=== PATIENT | female | born 1940 | race Caucasian/White ===

== ENCOUNTER 2016-09-29 18:42 | Inpatient (IN) | payer MEDICARE, OTHER ==
[2016-09-29] MEDS ORDERED: Sodium Chloride 0.9% 10 ML Syringe FLUSH PRN (19:12)
[2016-09-29] MEDS ORDERED: cefTRIAXone 1 GM Vial IVPUSH ONE (19:54)
[2016-09-29] MEDS ORDERED: Azithromycin 250 MG Tab PO ONE (19:55)
[2016-09-29 20:45] LABS: CHLORIDE,CL 97 mmol/L (98-107); SODIUM,NA 133 mmol/L (136-145)
[2016-09-30] MEDS: Metoprolol Tartrate 25 MG Tab PO SCH ×2 (00:24→08:16)
[2016-09-30] MEDS: Lisinopril 20 MG Tab PO SCH ×3 (00:25→19:46)
[2016-09-30] MEDS: rOPINIRole 0.5 MG Tab PO SCH ×2 (00:25→21:19)
--- NOTE | 2016-09-30 08:01 | ER ---
Date of Service: 09/29/2016 SUBJECTIVE: Yanique presents to the emergency room with 2-week history of productive cough, fever, chills, fatigue, and dyspnea. The patient states that she thought that she had a cold and which would resolve on its own. The patient states that her symptoms have gotten progressively worse and she is extremely fatigued and weak. She states that her cough is productive of yellowish to reddish sputum. She has also been experiencing fever and chills, but denies any significant shortness of breath. PAST MEDICAL HISTORY: 1. Hypertension. 2. Restless legs syndrome. 3. Thoracic aortic aneurysm. 4. Valvular heart disease. MEDICATIONS: 1. Requip 1 mg p.o. at bedtime. 2. Norvasc 5 mg p.o. daily. 3. Lopressor 100 mg p.o. b.i.d. 4. Lisinopril 20 mg p.o. b.i.d. 5. Vitamin D3 2000 units p.o. daily. 6. Aspirin 325 mg p.o. daily. ALLERGIES: Codeine. REVIEW OF SYSTEMS: General: Positive for fever and chills. HEENT: No sore throat, rhinorrhea, or congestion. Respiratory: Mild shortness of breath. She does have a productive cough and chest congestion. Cardiac: Denies any substernal chest pain. No jaw, arm, neck, or back pain. GI: No nausea, vomiting, or diarrhea. No melena, hematochezia, or hematemesis. : Denies any dysuria. Musculoskeletal: No myalgias, arthralgias. Neurologic: No fainting, blackouts, or lightheadedness. PHYSICAL EXAMINATION: General: This is a 76-year-old female patient, who is in no acute distress. Vital Signs: Blood pressure is 172/75, pulse rate 82, O2 saturations 87% on room air, respiratory rate is 20, temperature is 38.1, pulse rate 82. Skin: Warm, pink, and dry. HEENT: Head is normocephalic, atraumatic. Eyes, PERRLA. Extraocular movements are intact. Mouth, oral mucosa is moist. Lungs: Diminished with rhonchi noted in the mid lung valverde. Diminished in the bases with crackles. Heart: Regular rate and rhythm. Abdomen: Soft, nontender. There is no hepatosplenomegaly noted. There is no masses noted. Extremities: Without edema. Neurologic: She is alert and oriented answers questions appropriately. Her speech is fluent. Her gait is within normal limits. LABORATORY DATA: WBCs 18.4, hemoglobin is 14.3, platelets are 170, coags PT is 11.7, INR is 1.0, chemistry sodium is 133, potassium is 3.3, chloride is 97, bicarb is 28, BUN is 12, creatinine is 0.7. GFR is greater than 60. Glucose is 106 lactic acid is 1.5, calcium is 8.5, corrected calcium is 9.06, total bilirubin is 1.4, AST is 33, ALT 30, alkaline phosphatase is 108, CRP is 1.2. Total protein is 6.6, albumin is 3.3. Portable chest x-ray was obtained. She did have evidence of bibasilar infiltrates on the portable chest x-ray that was obtained. Influenza A and B were obtained and were negative. ASSESSMENT: Community-acquired pneumonia. PLAN: The patient was started on Rocephin 1 g IV and azithromycin 500 mg p.o. here in the emergency room. Based on the CURB-65 criteria patient was borderline for admission criteria, however, she was hypoxic which did necessitate inpatient treatment for this illness. Dr. Paige will be admitting the patient acutely, as she likely will be inpatient for more than 2 days. All questions were answered. MWK: 09/29/2016 21:10:10 MODL: 09/29/2016 21:36:12 /[id number]
[2016-09-30] MEDS: Aspirin 325 MG Tab.EC PO SCH (08:15)
[2016-09-30] MEDS: amLODIPine 5 MG Tab PO SCH (08:18)
[2016-09-30] MEDS: Cholecalciferol (Vitamin D3) 1,000 Unit Tab PO SCH (08:20)
[2016-09-30] MEDS ORDERED: Diclofenac Sodium 75 MG Tab.EC PO PRN (10:05)
--- NOTE | 2016-09-30 10:14 | PCM.HP ---
H&P History of Present Illness - General Date of Service: 09/30/16 Source of Information: Patient, Old Records - History of Present Illness Initial Comments - Free Text/Narative: Chief Complaint: Pneumonia HPI: She became ill about 2 weeks ago, thinks it started when the farmers near her house work cutting alfalfa and she noticed a bit of allergy. She then developed cough with yellow and reddish mucoid sputum, chills, fever and thought she had a cold and would get better. She was also too busy at home and with restorationist functions to come for medical care but finally last night when she wasnt improving she came to ER. She had WBC 18,000, CXR showing especially infiltrate on lower R, possibly some on L also and is admitted for bronchopneumonia. She has not had trouble with her lungs previously. Never a smoker or exposed to secondhand smoke. She has had trouble with UTIs quite a bit. Has been on Rx for hypertension for many years, for many years has noted rather marked exertional dyspnea, that is actually no worse now than previously. Her severe coughing is what bothers her the most. Medical History: -Thinks she has had no medical admissions to the hospital -Many ER visits for UTIs -Rx for hypertension for many years -Has had EchoKG in 08 showing aortic aneurysm, mild aortic and mitral regurgitation, EF 65% -DX of vitamin D deficiency, restless leg syndrome, L lung nodule, Impaired Fasting Glucose, H zoster, poorly functioning gallbladder, diverticulosis, abnormal DEXA, -seasonal allergic rhinitis Surgical History: -Para 6 -Bilateral knee replacement -Appendectomy -Colonoscopy in 15 showing only diverticulosis -Severe scalp laceration with a flap procedure for repair Family History: -Father and many brothers had coronary artery disease, 2 of the brothers had CABG -Another brother had a stroke -Sisters [place] Social History: Lived at [place] with her Eamon who 5 years ago. 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 Children live in [facility]. Patient of [facility]. Allergies: Intolerant to codeine Medications: -Vitamin D 2000 units daily -Lisinopril 20 mg BID -Norvasc 5 mg daily -Lopressor 100 mg BID -Requip 1 mg daily at bedtime for RLS -Aspirin 325 mg daily Systems Review: Constitutional: Says she doesnt eat much but maintains her weight, generally doing well except as above Eyes: Never any cataracts, has some lid ptosis but no surgery planned ENT: Hearing OK, has dentures Cardiac: C/O marked exertional dyspnea, not known if this is related to her valvular heart disease; denies any exertional chest pain Pulmonary: See HPI GI: Has had abnormal HIDA scan of her gallbladder but never needed cholecystectomy, says she mainly has to avoid spicy food, has some nausea this morning : Hx of cystocele but she denies any bladder control issues Endocrine: Has had borderline blood sugar, never any cholesterol or thyroid trouble Musculoskeletal still lots of pain in her knees, says it is rheumatism in her knees, legs; only mildly a problem in her hands Derm: Denies any skin cancers or other problems Heme: Says has had anemia in the past and bruises easily Allergies: Does have seasonal allergies, thinks this episode started with exposure to alfalfa hay Neuro: Has restless leg syndrome, lots of trouble with daily headache in the past, lately has not been very severe except during the 2 weeks of this illness , including this morning when she has a headache. Takes aspirin Psych: Never any trouble with depression, credits keeping very busy; does not drink alcohol upper mid chest Pain Score (Numeric/FACES): 6 - Related Data Allergies/Adverse Reactions: Allergies Allergy/AdvReac Type Severity Reaction Status Date / Time codeine Allergy Stomach Verified 09/29/16 20:57 Ache Home Medications: Home Meds Aspirin 325 mg PO DAILY 08/01/14 [History] Cholecalciferol (Vitamin D3) [Vitamin D] 2,000 unit PO DAILY 08/01/14 [History] Lisinopril [Prinivil] 20 mg PO BID 08/01/14 [History] Metoprolol Tartrate [Lopressor] 100 mg PO BID 08/01/14 [History] amLODIPine [Norvasc] 5 mg PO DAILY 08/01/14 [History] rOPINIRole HCl [Requip] 1 mg PO BEDTIME 08/01/14 [History] Aspirin/Calcium Carbonate/Mag [Aspirin Buffered 325 mg Tab] 325 mg PO DAILY [History] Diclofenac Sodium 25 mg PO BID 09/30/16 [History] Past Medical History Cardiovascular History: Reports: Afib, Hypertension Neurological History: Reports: Other (See Below) Other Neuro History: Restless leg syndrome Social & Family History - Tobacco Use Smoking Status *Q: Never Smoker Second Hand Smoke Exposure: No - Alcohol Use Days Per Week of Alcohol Use: 0 - Recreational Drug Use Recreational Drug Use: No H&P Review of Systems - Review of Systems: Review Of Systems: See Below Exam - Exam Exam: See Below - Vital Signs Vital Signs: Last Vital Signs Temp 36.7 C 09/30/16 09:17 Pulse 57 L 09/30/16 09:17 Resp 18 09/30/16 09:17 BP 141/72 H 09/30/16 09:17 Pulse Ox 92 L 09/30/16 09:17 Weight: 84.595 kg - Exam Physical Exam Comments:: Physical Exam: General: Sits up in bed unassisted, does not feel febrile, alert and lucid ENT: TMs normal color, mouth and throat unremarkable, has dentures; no obvious nasal discharge Eyes: Mild bilateral ptosis, pupils equal Neck: No jugular venous distention, bruit, or masses Cardiac: Heart is regular, has a grade 2 systolic murmur at the R sternal border ; no ankle edema and has good posterior tibial pulses bilateral Pulmonary: She is coughing a lot but her lung sounds are actually clear, does not appear overtly dyspneic Breasts: Not examined Abdomen: No tenderness, masses, organomegaly Extremities: Thickening of all of her joints, bony prominences in her feet, but no gross deformity Neuro: Alert, speech is clear, moves arms and legs normally, facial muscles symmetric Psych: Affect seems normal CXR: Definitely has some infiltrate in lower R, possibly L also Lab: Leukocytosis, mild hypokalemia (3.3) and hyponatremia (133) - Patient Data Result Diagrams: 09/29/16 20:10 09/29/16 20:10 *Q Meaningful Use (ADM) - VTE *Q VTE Criteria *Q: - Stroke *Q Stroke Criteria *Q: - AMI *Q AMI Criteria *Q: Problem List Initiated/Reviewed/Updated: Yes Orders Last 24hrs: Active Orders 24 hr Category Date Time Status Patient Status [ADT] Routine ADT 09/29/16 21:00 Ordered Oxygen Therapy [RC] PRN Care 09/30/16 09:39 Ordered VTE/DVT Education [RC] PER UNIT ROUTINE Care 09/30/16 09:39 Ordered Vital Signs [RC] Q4H Care 09/30/16 09:39 Ordered CXR [Chest 2V] [CR] Routine Exams 10/01/16 07:30 Ordered Aspirin [Ecotrin] Med 09/30/16 08:00 Active 325 mg PO DAILY Azithromycin [Zithromax] Med 09/30/16 09:45 Ordered 250 mg PO DAILY Cholecalciferol (Vitamin D3) [Vitamin D3] Med 09/30/16 08:00 Active 2,000 units PO DAILY Diclofenac Sodium [Voltaren] Med 09/30/16 10:05 Ordered 25 mg PO TID PRN LORazepam [Ativan] Med 09/30/16 20:00 Active 0.5 mg PO BEDTIME Lisinopril [Prinivil] Med 09/29/16 23:00 Active 20 mg PO BID Metoprolol Tartrate [Lopressor] Med 09/29/16 23:00 Active 100 mg PO BID amLODIPine [Norvasc] Med 09/30/16 08:00 Active 5 mg PO DAILY cefTRIAXone [Rocephin] Med 09/30/16 20:00 Ordered 1 gm IVPUSH DAILY rOPINIRole [Requip] Med 09/30/16 00:00 Active 1 mg PO BEDTIME Resuscitation Status Routine Resus Stat 09/30/16 09:39 Ordered Medication Orders Amlodipine Besylate (Norvasc) 5 mg PO DAILY [facility] Last Admin: 09/30/16 08:18 Dose: 5 mg Aspirin (Ecotrin) 325 mg PO DAILY [facility] Last Admin: 09/30/16 08:15 Dose: 325 mg Azithromycin (Zithromax) 250 mg PO BEDTIME [facility] Stop: 10/03/16 20:01 Ceftriaxone Sodium (Rocephin) 1 gm IVPUSH BEDTIME [facility] Cholecalciferol (Vitamin D3) 2,000 units PO DAILY [facility] Last Admin: 09/30/16 08:20 Dose: 2,000 units Diclofenac Sodium (Voltaren) 25 mg PO TID PRN PRN Reason: Pain Lisinopril (Prinivil) 20 mg PO BID [facility] Last Admin: 09/30/16 08:19 Dose: 20 mg Admin: 09/30/16 00:25 Dose: 20 mg Lorazepam (Ativan) 0.5 mg PO BEDTIME [facility] Metoprolol Tartrate (Lopressor) 100 mg PO BID [facility] Last Admin: 09/30/16 08:16 Dose: 100 mg Admin: 09/30/16 00:24 Dose: 100 mg Ropinirole HCl (Requip) 1 mg PO BEDTIME [facility] Last Admin: 09/30/16 00:25 Dose: 1 mg Sodium Chloride (Saline Flush) 10 ml FLUSH ASDIRECTED PRN PRN Reason: Keep Vein Open Assessment/Plan Comment:: Impression: -Bronchopneumonia, especially lower R, possibly bilateral Secondary diagnoses: Hypertension, controlled -Mild aortic stenosis with mild regurgitation -Hx of thoracic aortic aneurysm, stable -Restless leg syndrome -Hx vitamin D deficiency -Seasonal allergic rhinitis -Degenerative arthritis -Mild ptosis of eyelids Plan: -Admitted for IV Rocephin and oral Zithromax -Repeat CXR on 10/01 -Continue other medications as previous
[2016-09-30] MEDS ORDERED: DICLOFENAC 25 MG PO PRN (10:16)
[2016-09-30] MEDS: Ibuprofen 200 MG Tab PO PRN (10:59)
[2016-09-30] MEDS: Azithromycin 250 MG Tab PO SCH (19:41)
[2016-09-30] MEDS: Metoprolol Tartrate 50 MG Tab PO SCH (19:45)
[2016-09-30] MEDS: cefTRIAXone 1 GM Vial IVPUSH SCH (19:49)
[2016-09-30] MEDS: LORazepam 0.5 MG Tab PO SCH (21:19)
[2016-10-01] MEDS: Ibuprofen 200 MG Tab PO PRN ×2 (05:07→23:45)
[2016-10-01] MEDS: Aspirin 325 MG Tab.EC PO SCH (08:25)
[2016-10-01] MEDS: Metoprolol Tartrate 50 MG Tab PO SCH ×2 (08:25→19:40)
[2016-10-01] MEDS: amLODIPine 5 MG Tab PO SCH (08:27)
[2016-10-01] MEDS: Lisinopril 20 MG Tab PO SCH ×2 (08:28→19:41)
[2016-10-01] MEDS: Cholecalciferol (Vitamin D3) 1,000 Unit Tab PO SCH (08:29)
[2016-10-01] MEDS ORDERED: Sodium Chloride 0.9% 100 ML IV ONE (10:18)
[2016-10-01] MEDS ORDERED: Iopamidol 612 MG/ML 100 ML Bottle IVPUSH ONE (10:18)
[2016-10-01 11:17] LABS: CHLORIDE,CL 95 mmol/L (98-107); SODIUM,NA 132 mmol/L (136-145)
--- NOTE | 2016-10-01 14:17 | PCM.PN ---
- General Info Date of Service: 10/01/16 Admission Dx/Problem (Free Text): Subjective: Patient was admitted two days ago for pneumonia. Started on Rocephin plus Zithromax. She describes close to a two-week history before this with what she felt was just a bad cold. She describes progressive sputum and dyspnea. Probably some low-grade fevers at home nothing very pronounced here. She does note blood tinged sputum which has continued while she is here. She's may be feeling slightly better since admission but not a lot. Maybe slight pressure in her chest but nothing which she would describe as pain per se. She has no history of heart or lung disease. She has no risk factors for thromboembolic disease. She never smoked. Objective: Oxygen saturations 98% on 2 L temperature 36.7 blood pressure 160/80 pulse 90. Alert oriented sitting in chair not dyspneic no acute distress heart regular rate and rhythm no murmurs or gallops lungs reveal some diminished sounds slight crackles right base. Extremities warm well perfused no calf swelling or edema. White count is decreased from 18,000 10,000. CRP is gone up from 1-10. Chemistry remained stable. BNP and d-dimer only mildly elevated for age. Because of hemoptysis we did CT chest. She does wear fairly dense infiltrate on the right lower side. Assessment and plan: Hemoptysis dyspnea. Appears to be secondary to the dense pneumonitis on the right lung. Probably infectious in nature. White count is coming down, she's been afebrile since she's been here, her oxygen saturations have improved from low 90s to high 90s on 2 L. Continue Rocephin plus Zithromax. No PE seen. She will need repeat imaging in six weeks or so to ensure resolution of this dense infiltrate and exclude any underlying mass. BP running a bit high, will monitor for now. She otherwise appears stable. - Patient Data Vitals - most recent: Last Vital Signs Temp 36.4 C 10/01/16 14:03 Pulse 62 10/01/16 08:25 Resp 18 10/01/16 14:03 BP 161/72 H 10/01/16 14:03 Pulse Ox 62 L 10/01/16 14:03 Weight - most recent: 84.595 kg I&O - last 24 hours: Intake & Output 09/30/16 10/01/16 10/01/16 22:59 06:59 14:59 Intake Total 300 250 910 Output Total 200 200 350 Balance 100 50 560 Lab Results last 24 hrs: Laboratory Results - last 24 hr 10/01/16 10/01/16 10/01/16 Range/Units 10:38 10:38 10:38 WBC 10.3 H (4.0-10.0) x10^3/uL RBC 4.56 (4.00-5.50) x10^6/uL Hgb 13.7 (12.0-16.0) g/dL Hct 40.6 (33.0-47.0) % MCV 89.0 (78.0-93.0) fL MCH 30.0 (26.0-32.0) pg MCHC 33.7 (32.0-36.0) g/dL RDW Coeff of Artur 14.0 (10.0-15.0) % Plt Count 154 (130-400) x10^3/uL Neut % (Auto) 89.4 H (50.0-80.0) % Lymph % (Auto) 5.6 L (25.0-50.0) % [place] % (Auto) 4.7 (2.0-11.0) % Eos % (Auto) 0.2 (0.0-4.0) % Baso % (Auto) 0.1 L (0.2-1.2) % D-Dimer, Quantitative 1.07 H (<=0.58) mg/LFEU Sodium 132 L (136-145) mmol/L Potassium 3.8 (3.5-5.1) mmol/L Chloride 95 L (98-107) mmol/L Carbon Dioxide 33 H (21-32) mmol/L BUN 14 (7-18) mg/dL Creatinine 0.7 (0.55-1.02) mg/dL Est Cr Clr Drug Dosing 62.01 mL/min Estimated GFR (MDRD) > 60 Glucose 102 (74-106) mg/dL Calcium 8.5 (8.5-10.1) mg/dL Corrected Calcium 9.38 (8.5-10.1) mg/dL Total Bilirubin 1.0 (0.2-1.0) mg/dL AST 31 (15-37) U/L ALT 30 (14-59) U/L Alkaline Phosphatase 96 (46-116) U/L Troponin I 0.020 (<=0.056) ng/mL C-Reactive Protein 10.2 H (<=0.9) mg/dL B-Natriuretic Peptide 792 H (<=450) pg/mL Total Protein 6.2 L (6.4-8.2) g/dL Albumin 2.9 L (3.4-5.0) g/dL Globulin 3.3 Albumin/Globulin Ratio 0.88 Med Orders - Current: Current Medications Amlodipine Besylate (Norvasc) 5 mg PO DAILY [facility] Last Admin: 10/01/16 08:27 Dose: 5 mg Aspirin (Ecotrin) 325 mg PO DAILY [facility] Last Admin: 10/01/16 08:25 Dose: 325 mg Azithromycin (Zithromax) 250 mg PO BEDTIME [facility] Stop: 10/03/16 20:01 Last Admin: 09/30/16 19:41 Dose: 250 mg Ceftriaxone Sodium (Rocephin) 1 gm IVPUSH BEDTIME [facility] Last Admin: 09/30/16 19:49 Dose: 1 gm Cholecalciferol (Vitamin D3) 2,000 units PO DAILY [facility] Last Admin: 10/01/16 08:29 Dose: 2,000 units Ibuprofen (Motrin) 400 mg PO TID PRN PRN Reason: PAIN Last Admin: 10/01/16 05:07 Dose: 400 mg Lisinopril (Prinivil) 20 mg PO BID [facility] Last Admin: 10/01/16 08:28 Dose: 20 mg Lorazepam (Ativan) 0.5 mg PO BEDTIME [facility] Last Admin: 09/30/16 21:19 Dose: 0.5 mg Metoprolol Tartrate (Lopressor) 100 mg PO BID [facility] Last Admin: 10/01/16 08:25 Dose: 100 mg Ropinirole HCl (Requip) 1 mg PO BEDTIME [facility] Last Admin: 09/30/16 21:19 Dose: 1 mg Sodium Chloride (Saline Flush) 10 ml FLUSH ASDIRECTED PRN PRN Reason: Keep Vein Open Discontinued Medications Azithromycin (Zithromax) 500 mg PO ONETIME ONE Stop: 09/29/16 19:56 Last Admin: 09/29/16 20:25 Dose: 500 mg Ceftriaxone Sodium (Rocephin) 1 gm IVPUSH ONETIME ONE Stop: 09/29/16 19:55 Last Admin: 09/29/16 20:30 Dose: 1 gm Sodium Chloride (Normal Saline) 100 mls @ 3 mls/sec IV ONETIME ONE Stop: 10/01/16 10:19 Last Admin: 10/01/16 11:14 Dose: Not Given Iopamidol (Isovue-300 (61%)) 100 ml IVPUSH ONETIME ONE Stop: 10/01/16 10:19 Last Admin: 10/01/16 11:14 Dose: 100 ml Metoprolol Tartrate (Lopressor) 100 mg PO BID [facility] Last Admin: 09/30/16 08:16 Dose: 100 mg - Problem List Review Problem List Initiated/Reviewed/Updated: Yes - My Orders Last 24 Hours: My Active Orders 10/01/16 10:04 Chest PE [Ang Chest] [CT] Routine - Plan Plan:: Impression: -Bronchopneumonia, especially lower R, possibly bilateral Secondary diagnoses: Hypertension, controlled -Mild aortic stenosis with mild regurgitation -Hx of thoracic aortic aneurysm, stable -Restless leg syndrome -Hx vitamin D deficiency -Seasonal allergic rhinitis -Degenerative arthritis -Mild ptosis of eyelids Plan: -Admitted for IV Rocephin and oral Zithromax -Repeat CXR on 10/01 -Continue other medications as previous
[2016-10-01] MEDS: LORazepam 0.5 MG Tab PO SCH (19:40)
[2016-10-01] MEDS: rOPINIRole 0.5 MG Tab PO SCH (19:40)
[2016-10-01] MEDS: Azithromycin 250 MG Tab PO SCH (19:41)
[2016-10-01] MEDS: cefTRIAXone 1 GM Vial IVPUSH SCH (19:42)
[2016-10-02] MEDS: Cholecalciferol (Vitamin D3) 1,000 Unit Tab PO SCH (07:54)
[2016-10-02] MEDS: Lisinopril 20 MG Tab PO SCH ×2 (07:54→19:32)
[2016-10-02] MEDS: Metoprolol Tartrate 50 MG Tab PO SCH ×2 (07:54→19:36)
[2016-10-02] MEDS: Aspirin 325 MG Tab.EC PO SCH (07:54)
[2016-10-02] MEDS: amLODIPine 5 MG Tab PO SCH (07:55)
--- NOTE | 2016-10-02 08:57 | PCM.PN ---
- General Info Date of Service: 10/02/16 Subjective Update: Feels improved from yesterday and significantly so from admission. Still cough that is productive of brown-reddish sputum. No shortness of breath, chest pain, or palpitations. Still feels somewhat weak but improved from admission; PT cleared her yesterday to go home upon d/c rather than swing bed. - Review of Systems General: Reports: No Symptoms HEENT: Reports: no symptoms Pulmonary: Reports: cough, sputum, hemoptysis. Denies: shortness of breath Cardiovascular: Reports: No Symptoms Gastrointestinal: Reports: No symptoms Genitourinary: Reports: no symptoms Skin: Reports: no symptoms Neurological: Reports: No Symptoms - Patient Data Vitals - most recent: Last Vital Signs Temp 36.5 C 10/02/16 06:00 Pulse 73 10/02/16 07:54 Resp 14 10/02/16 06:00 BP 176/80 H 10/02/16 07:55 Pulse Ox 97 10/02/16 06:00 Weight - most recent: 84.595 kg I&O - last 24 hours: Intake & Output 10/01/16 10/02/16 10/02/16 22:59 06:59 14:59 Intake Total 380 800 Output Total 450 1000 Balance -70 -200 Lab Results last 24 hrs: Laboratory Results - last 24 hr 10/01/16 10/01/16 10/01/16 Range/Units 10:38 10:38 10:38 WBC 10.3 H (4.0-10.0) x10^3/uL RBC 4.56 (4.00-5.50) x10^6/uL Hgb 13.7 (12.0-16.0) g/dL Hct 40.6 (33.0-47.0) % MCV 89.0 (78.0-93.0) fL MCH 30.0 (26.0-32.0) pg MCHC 33.7 (32.0-36.0) g/dL RDW Coeff of Artur 14.0 (10.0-15.0) % Plt Count 154 (130-400) x10^3/uL Neut % (Auto) 89.4 H (50.0-80.0) % Lymph % (Auto) 5.6 L (25.0-50.0) % [place] % (Auto) 4.7 (2.0-11.0) % Eos % (Auto) 0.2 (0.0-4.0) % Baso % (Auto) 0.1 L (0.2-1.2) % D-Dimer, Quantitative 1.07 H (<=0.58) mg/LFEU Sodium 132 L (136-145) mmol/L Potassium 3.8 (3.5-5.1) mmol/L Chloride 95 L (98-107) mmol/L Carbon Dioxide 33 H (21-32) mmol/L BUN 14 (7-18) mg/dL Creatinine 0.7 (0.55-1.02) mg/dL Est Cr Clr Drug Dosing 62.01 mL/min Estimated GFR (MDRD) > 60 Glucose 102 (74-106) mg/dL Calcium 8.5 (8.5-10.1) mg/dL Corrected Calcium 9.38 (8.5-10.1) mg/dL Total Bilirubin 1.0 (0.2-1.0) mg/dL AST 31 (15-37) U/L ALT 30 (14-59) U/L Alkaline Phosphatase 96 (46-116) U/L Troponin I 0.020 (<=0.056) ng/mL C-Reactive Protein 10.2 H (<=0.9) mg/dL B-Natriuretic Peptide 792 H (<=450) pg/mL Total Protein 6.2 L (6.4-8.2) g/dL Albumin 2.9 L (3.4-5.0) g/dL Globulin 3.3 Albumin/Globulin Ratio 0.88 Med Orders - Current: Current Medications Amlodipine Besylate (Norvasc) 5 mg PO DAILY [facility] Last Admin: 10/02/16 07:55 Dose: 5 mg Aspirin (Ecotrin) 325 mg PO DAILY [facility] Last Admin: 10/02/16 07:54 Dose: 325 mg Azithromycin (Zithromax) 250 mg PO BEDTIME [facility] Stop: 10/03/16 20:01 Last Admin: 10/01/16 19:41 Dose: 250 mg Ceftriaxone Sodium (Rocephin) 1 gm IVPUSH BEDTIME [facility] Last Admin: 10/01/16 19:42 Dose: 1 gm Cholecalciferol (Vitamin D3) 2,000 units PO DAILY [facility] Last Admin: 10/02/16 07:54 Dose: 2,000 units Ibuprofen (Motrin) 400 mg PO TID PRN PRN Reason: PAIN Last Admin: 10/01/16 23:45 Dose: 400 mg Lisinopril (Prinivil) 20 mg PO BID [facility] Last Admin: 10/02/16 07:54 Dose: 20 mg Lorazepam (Ativan) 0.5 mg PO BEDTIME [facility] Last Admin: 10/01/16 19:40 Dose: 0.5 mg Metoprolol Tartrate (Lopressor) 100 mg PO BID [facility] Last Admin: 10/02/16 07:54 Dose: 100 mg Ropinirole HCl (Requip) 1 mg PO BEDTIME [facility] Last Admin: 10/01/16 19:40 Dose: 1 mg Sodium Chloride (Saline Flush) 10 ml FLUSH ASDIRECTED PRN PRN Reason: Keep Vein Open Discontinued Medications Azithromycin (Zithromax) 500 mg PO ONETIME ONE Stop: 09/29/16 19:56 Last Admin: 09/29/16 20:25 Dose: 500 mg Ceftriaxone Sodium (Rocephin) 1 gm IVPUSH ONETIME ONE Stop: 09/29/16 19:55 Last Admin: 09/29/16 20:30 Dose: 1 gm Sodium Chloride (Normal Saline) 100 mls @ 3 mls/sec IV ONETIME ONE Stop: 10/01/16 10:19 Last Admin: 10/01/16 11:14 Dose: Not Given Iopamidol (Isovue-300 (61%)) 100 ml IVPUSH ONETIME ONE Stop: 10/01/16 10:19 Last Admin: 10/01/16 11:14 Dose: 100 ml Metoprolol Tartrate (Lopressor) 100 mg PO BID [facility] Last Admin: 09/30/16 08:16 Dose: 100 mg - Exam General: alert, oriented, cooperative, no acute distress HEENT: Pupils equal, Pupils reactive, Mucous membr. moist/pink Neck: supple, trachea midline, no thyromegaly. No: lymphadenopathy Lungs: Normal respiratory effort, Crackles (RLL) Cardiovascular: Regular Rate, Regular Rhythm, No Murmurs Abdomen: bowel sounds present, soft, no tenderness, no distension Extremities: no edema, normal pulses Skin: warm, dry, intact - Problem List & Annotations (1) Community acquired pneumonia SNOMED Code(s): 183673024 Code(s): J18.9 - PNEUMONIA, UNSPECIFIED ORGANISM Status: Acute Current Visit: Yes Annotation/Comment:: - Clinically improving. - WBC down yesterday, not checked today. Will plan CBC tomorrow. - CT chest obtained yesterday due to persistent hemoptysis and showed a dense infiltrate but no PE. - No need for CXR today in light of CT chest findings yesterday. - Will switch to cefdinir and continue azithromycin today to get her started on PO's before dismissal. - Oxygen PRN but she is currently stable on RA. - Will need follow-up CXR in 6 weeks. (2) Hypertension, essential SNOMED Code(s): 83927340 Code(s): I10 - ESSENTIAL (PRIMARY) HYPERTENSION Status: Chronic Current Visit: Yes Annotation/Comment:: - BP's have been up at times. - Patient is asymptomatic. - Will watch throughout the day today and adjust antihypertensives if remains persistently elevated. (3) Aortic stenosis SNOMED Code(s): 21864778 Code(s): I35.0 - NONRHEUMATIC AORTIC (VALVE) STENOSIS Status: Chronic Current Visit: Yes Qualifiers: Cardiac valve disease etiology: etiology unspecified Qualified Code(s): I35.0 - Nonrheumatic aortic (valve) stenosis Annotation/Comment:: - Asymptomatic. - Home medications continued. (4) RLS (restless legs syndrome) SNOMED Code(s): 79235314 Code(s): G25.81 - RESTLESS LEGS SYNDROME Status: Chronic Current Visit: Yes - Problem List Review Problem List Initiated/Reviewed/Updated: Yes - Assessment Assessment:: 76 yo female admitted with community acquired pneumonia and hypoxia. Is clinically improving. - Plan Plan:: Continue azithromycin but switch to cefdinir PO today. Will recheck WBC tomorrow ; no need for follow-up CXR during this admission. Patient has not been on anything for VTE prophylaxis; given persistent hemoptysis and concerns for worsening this and in light of anticipated dismissal tomorrow, will not start anything today. She is Full Code. Anticipate dismissal home tomorrow.
[2016-10-02] MEDS: Cefdinir 300 MG Cap PO SCH ×2 (09:34→19:37)
[2016-10-02] MEDS: Ibuprofen 200 MG Tab PO PRN ×2 (13:58→22:26)
[2016-10-02] MEDS: rOPINIRole 0.5 MG Tab PO SCH (19:37)
[2016-10-02] MEDS: Azithromycin 250 MG Tab PO SCH (19:37)
[2016-10-02] MEDS: LORazepam 0.5 MG Tab PO SCH (20:29)
[2016-10-03] MEDS: Ibuprofen 200 MG Tab PO PRN (03:50)
[2016-10-03 07:46] LABS: CHLORIDE,CL 100 mmol/L (98-107); SODIUM,NA 137 mmol/L (136-145)
[2016-10-03] MEDS: Cholecalciferol (Vitamin D3) 1,000 Unit Tab PO SCH (07:46)
[2016-10-03] MEDS: Cefdinir 300 MG Cap PO SCH (07:46)
[2016-10-03] MEDS: Metoprolol Tartrate 50 MG Tab PO SCH (07:47)
[2016-10-03] MEDS: Aspirin 325 MG Tab.EC PO SCH (07:47)
[2016-10-03] MEDS: Lisinopril 20 MG Tab PO SCH (07:48)
[2016-10-03] MEDS: amLODIPine 5 MG Tab PO SCH (07:48)
--- NOTE | 2016-10-03 09:38 | PCM.DCSUM1 ---
Discharge Summary - Hospital Course Brief History: Mrs. Rosenberg is a 76 yo female who was admitted with community acquired pneumonia after presenting to clinic for evaluation of shortness of breath. - Discharge Data Discharge Date: 10/03/16 Discharge Disposition: Home, Self-Care 01 Condition: Fair - Discharge Diagnosis/Problem(s) (1) Community acquired pneumonia SNOMED Code(s): 761875097 ICD Code: J18.9 - PNEUMONIA, UNSPECIFIED ORGANISM Status: Acute Current Visit: Yes Problem Details: She was diagnosed with pneumonia in the ED and started on ceftriaxone and azithromycin. Due to persistent hemoptysis, a d- dimer was checked and was positive. Therefore, a CT scan was done in follow-up and was negative for PE but did confirm the right lower lobe pneumonia. She had been on oxygen initially but that was weaned as of the morning prior to (>24 hours prior to) dismissal. Her symptoms progressively improved and she was transitioned to cefdinir and azithromycin the day before discharge without incident. Her WBC also trended down nicely and had returned to normal as of the day of dismissal. She will follow-up with her PCP next week and will need a follow-up chest x-ray in 6 weeks. (2) Hypertension, essential SNOMED Code(s): 54603359 ICD Code: I10 - ESSENTIAL (PRIMARY) HYPERTENSION Status: Chronic Current Visit: Yes Problem Details: Blood pressures have been quite high in the mornings of her hospital stay but always come down throughout the day. She has been asymptomatic. No changes have been made to her blood pressure medications and she will follow-up outpatient regarding this as well. (3) Aortic stenosis SNOMED Code(s): 61065661 ICD Code: I35.0 - NONRHEUMATIC AORTIC (VALVE) STENOSIS Status: Chronic Current Visit: Yes Problem Details: Asymptomatic. Home medications continued. Qualifiers: Cardiac valve disease etiology: etiology unspecified Qualified Code(s): I35.0 - Nonrheumatic aortic (valve) stenosis (4) RLS (restless legs syndrome) SNOMED Code(s): 80285194 ICD Code: G25.81 - RESTLESS LEGS SYNDROME Status: Chronic Current Visit: Yes - Patient Summary/Data Operative Procedure(s) Performed: none Complications: none Consults: Consultations 09/30/16 17:36 Consult to Occupational Therapy [OT Evaluation and Treatment] [CONS] Routine Consult to Physical Therapy [PT Evaluation and Treatment] [CONS] Routine Labs Pending at D/C: none Recommended Follow-up Testing/Procedures: chest x-ray in 6 weeks Planned Operative Procedure(s) after DC: none Hospital Course: Please see details under problems listed above. Hospital stay was otherwise uncomplicated. - Patient Instructions Diet: Usual Diet as Tolerated - Discharge Plan Prescriptions/Med Rec: Azithromycin [Zithromax] 250 mg PO BEDTIME #1 tablet Cefdinir [IJD: Cefdinir] 300 mg PO BID #8 capsule Home Medications: Home Meds Aspirin 325 mg PO DAILY 08/01/14 [History] Cholecalciferol (Vitamin D3) [Vitamin D3] 4,000 unit PO DAILY 08/01/14 [History] Lisinopril [Prinivil] 20 mg PO BID 08/01/14 [History] Metoprolol Tartrate [Lopressor] 100 mg PO BID 08/01/14 [History] amLODIPine [Norvasc] 5 mg PO DAILY 08/01/14 [History] rOPINIRole HCl [Requip] 1 mg PO BEDTIME 08/01/14 [History] Azithromycin [Zithromax] 250 mg PO BEDTIME #1 tablet 10/03/16 [Rx] Cefdinir [IJD: Cefdinir] 300 mg PO BID #8 capsule 10/03/16 [Rx] - Discharge Summary/Plan Comment DC Time >30 min.: No - General Info Date of Service: 10/03/16 Subjective Update: Feeling better this morning. Color of sputum is lightening up. Cough is still productive but is finding it easier to get up. Shortness of breath improved; no chest pain, fever, chills. - Review of Systems General: Reports: No Symptoms HEENT: Reports: no symptoms Pulmonary: Reports: shortness of breath, cough, sputum Cardiovascular: Reports: No Symptoms Gastrointestinal: Reports: No symptoms Genitourinary: Reports: no symptoms Musculoskeletal: Reports: no symptoms Skin: Reports: no symptoms Neurological: Reports: No Symptoms - Patient Data Vitals - Most Recent: Last Vital Signs Temp 36.7 C 10/03/16 06:31 Pulse 84 10/03/16 07:47 Resp 20 10/03/16 06:31 BP 188/90 H 10/03/16 07:48 Pulse Ox 93 L 10/03/16 08:00 Weight - Most Recent: 84.595 kg I&O - Last 24 hours: Intake & Output 10/02/16 10/03/16 10/03/16 22:59 06:59 14:59 Intake Total 600 Output Total 400 1000 Balance -400 -400 Lab Results - Last 24 hrs: Laboratory Results - last 24 hr 10/03/16 10/03/16 Range/Units 07:22 07:22 WBC 4.3 (4.0-10.0) x10^3/uL RBC 4.77 (4.00-5.50) x10^6/uL Hgb 14.2 (12.0-16.0) g/dL Hct 41.8 (33.0-47.0) % MCV 87.6 (78.0-93.0) fL MCH 29.8 (26.0-32.0) pg MCHC 34.0 (32.0-36.0) g/dL RDW Coeff of Artur 13.6 (10.0-15.0) % Plt Count 159 (130-400) x10^3/uL Neut % (Auto) 75.9 (50.0-80.0) % Lymph % (Auto) 15.3 L (25.0-50.0) % [place] % (Auto) 7.4 (2.0-11.0) % Eos % (Auto) 1.2 (0.0-4.0) % Baso % (Auto) 0.2 (0.2-1.2) % Sodium 137 (136-145) mmol/L Potassium 3.7 (3.5-5.1) mmol/L Chloride 100 (98-107) mmol/L Carbon Dioxide 33 H (21-32) mmol/L BUN 7 (7-18) mg/dL Creatinine 0.6 (0.55-1.02) mg/dL Est Cr Clr Drug Dosing 72.34 mL/min Estimated GFR (MDRD) > 60 Glucose 98 (74-106) mg/dL Calcium 8.7 (8.5-10.1) mg/dL Med Orders - Current: Current Medications Amlodipine Besylate (Norvasc) 5 mg PO DAILY [facility] Last Admin: 10/03/16 07:48 Dose: 5 mg Aspirin (Ecotrin) 325 mg PO DAILY [facility] Last Admin: 10/03/16 07:47 Dose: 325 mg Azithromycin (Zithromax) 250 mg PO BEDTIME [facility] Stop: 10/03/16 20:01 Last Admin: 10/02/16 19:37 Dose: 250 mg Cefdinir (Omnicef) 300 mg PO BID [facility] Last Admin: 10/03/16 07:46 Dose: 300 mg Cholecalciferol (Vitamin D3) 2,000 units PO DAILY [facility] Last Admin: 10/03/16 07:46 Dose: 2,000 units Ibuprofen (Motrin) 400 mg PO TID PRN PRN Reason: PAIN Last Admin: 10/03/16 03:50 Dose: 400 mg Lisinopril (Prinivil) 20 mg PO BID [facility] Last Admin: 10/03/16 07:48 Dose: 20 mg Lorazepam (Ativan) 0.5 mg PO BEDTIME [facility] Last Admin: 10/02/16 20:29 Dose: 0.5 mg Metoprolol Tartrate (Lopressor) 100 mg PO BID [facility] Last Admin: 10/03/16 07:47 Dose: 100 mg Ropinirole HCl (Requip) 1 mg PO BEDTIME [facility] Last Admin: 10/02/16 19:37 Dose: 1 mg Sodium Chloride (Saline Flush) 10 ml FLUSH ASDIRECTED PRN PRN Reason: Keep Vein Open Discontinued Medications Azithromycin (Zithromax) 500 mg PO ONETIME ONE Stop: 09/29/16 19:56 Last Admin: 09/29/16 20:25 Dose: 500 mg Ceftriaxone Sodium (Rocephin) 1 gm IVPUSH ONETIME ONE Stop: 09/29/16 19:55 Last Admin: 09/29/16 20:30 Dose: 1 gm Ceftriaxone Sodium (Rocephin) 1 gm IVPUSH BEDTIME [facility] Last Admin: 10/01/16 19:42 Dose: 1 gm Sodium Chloride (Normal Saline) 100 mls @ 3 mls/sec IV ONETIME ONE Stop: 10/01/16 10:19 Last Admin: 10/01/16 11:14 Dose: Not Given Iopamidol (Isovue-300 (61%)) 100 ml IVPUSH ONETIME ONE Stop: 10/01/16 10:19 Last Admin: 10/01/16 11:14 Dose: 100 ml Metoprolol Tartrate (Lopressor) 100 mg PO BID [facility] Last Admin: 09/30/16 08:16 Dose: 100 mg - Exam General: Reports: alert, cooperative, no acute distress HEENT: Reports: Mucous membr. moist/pink Neck: Reports: supple, no thyromegaly. Denies: lymphadenopathy Lungs: Reports: Crackles (crackles left lower lobe, lungs otherwise clear) Cardiovascular: Reports: Regular Rate, Regular Rhythm, No Murmurs Abdomen: Reports: bowel sounds present, soft, no tenderness, no distension Extremities: Reports: no edema, normal pulses Skin: Reports: warm, dry, intact *Q Meaningful Use (DIS) - VTE *Q VTE Criteria *Q: - Stroke *Q Stroke Criteria *Q: - AMI *Q AMI Criteria *Q:
[2016-10-03 10:13] VITALS: BP 169/89
== END 2016-10-03 10:50 | disposition home or self-care (01) | DRG 195 ==
LOC: VM.ED 18:42 → VM.MS 20:54
PROVIDERS: ADMIT Family Medicine; ATTEND Family Medicine
DX: J18.9 Pneumonia, unspecified organism (principal); R09.02 Hypoxemia; I48.91 Unspecified atrial fibrillation; I10 Essential (primary) hypertension; I38 Endocarditis, valve unspecified; G25.81 Restless legs syndrome; I35.0 Nonrheumatic aortic (valve) stenosis; I71.2 Thoracic aortic aneurysm, without rupture; E55.9 Vitamin D deficiency, unspecified; J30.2 Other seasonal allergic rhinitis; M19.90 Unspecified osteoarthritis, unspecified site; H02.403 Unspecified ptosis of bilateral eyelids; Z79.82 Long term (current) use of aspirin; Z79.899 Other long term (current) drug therapy; Z88.8 Allergy status to other drugs, medicaments and biological substances
CPT/HCPCS: 36415; 71010; 80053; 83605; 85025; 85610; 86140; 87040 ×2; 87804 ×2; 94760; 96374; 99285; A9270; J0696; 71020; 71275; 80048; 83880; 84484; 85379; 97161-GP; 97165-GO; 99284-GF; Q9967

== ENCOUNTER 2020-09-30 07:40 | Inpatient (IN) | payer MEDICARE, OTHER ==
[2020-09-30] MEDS ORDERED: Lisinopril 20 MG Tab PO STA (08:20)
[2020-09-30 08:45] LABS: ANION GAP 10.1 mmol/L (5-15); CHLORIDE,CL 98 mmol/L (98-107); SODIUM,NA 132 mmol/L (136-145)
--- NOTE | 2020-09-30 08:51 | EDM.PDOC ---
ED HPI GENERAL MEDICAL PROBLEM - General Chief Complaint: Respiratory Problem Stated Complaint: SOB Time Seen by Provider: 09/30/20 08:20 Source of Information: Reports: Patient, Family History Limitations: Reports: No Limitations - History of Present Illness INITIAL COMMENTS - FREE TEXT/NARRATIVE: Patient states last night when she went to bed she started having intermittent s hortness of breath mostly with laying down and alleviated with sitting up it would last anywhere from 30 minutes to an hour at a time she had no chest pain. She says she is experienced this 1 or 2 times before. She has recently been diagnosed with A. fib she is on Eliquis metoprolol and lisinopril no issues with the medication. She states she has not taken her blood pressure medications this morning usually takes in about 10 AM. She says yesterday all she did was to go to eat with her grandson and played cards last night with some friends at her house nothing out of the ordinary she has noticed that her ankles and feet have swollen little bit more in the last week may be just a little bit more than normal. She says she feels much better this morning has no other complaints Onset: Today Duration: Hour(s): Associated Symptoms: Reports: Shortness of Breath. Denies: Confusion, Chest Pain, Cough, cough w sputum, Diaphoresis, Fever/Chills, Headaches, Loss of Appetite, Malaise, Nausea/Vomiting, Rash, Seizure, Syncope, Weakness - Related Data Allergies Allergy/AdvReac Type Severity Reaction Status Date / Time codeine AdvReac Stomach Verified 09/30/20 08:32 Ache Home Meds: Home Meds Aspirin 325 mg PO DAILY 08/01/14 [History] Cholecalciferol (Vitamin D3) [Vitamin D3] 5,000 unit PO DAILY 08/01/14 [History] Metoprolol Tartrate [Lopressor] 100 mg PO BID 08/01/14 [History] amLODIPine [Norvasc] 10 mg PO DAILY 08/01/14 [History] lisinopriL [Prinivil] 20 mg PO BID 08/01/14 [History] rOPINIRole HCl [Requip] 1 mg PO BEDTIME 08/01/14 [History] Past Medical History HEENT History: Reports: Allergic Rhinitis Cardiovascular History: Reports: Afib, Hypertension Other Cardiovascular History: aortic and mitral regurgitation Gastrointestinal History: Reports: Diverticulosis Neurological History: Reports: Other (See Below) Other Neuro History: Restless leg syndrome Endocrine/Metabolic History: Reports: Vitamin D Deficiency - Infectious Disease History Infectious Disease History: Reports: Shingles - Past Surgical History Musculoskeletal Surgical History: Reports: Knee Replacement Other Musculoskeletal Surgeries/Procedures:: Bilateral knee replacement Social & Family History - Caffeine Use Caffeine Use: Reports: Coffee ED ROS GENERAL - Review of Systems Review Of Systems: See Below Constitutional: Reports: No Symptoms. Denies: Fever, Chills, Malaise, Weakness, Fatigue, Night Sweats, Diaphoresis, Decreased Appetite, Weight Gain HEENT: Reports: No Symptoms Respiratory: Reports: Shortness of Breath. Denies: Wheezing, Pleuritic Chest Pain, Cough, Sputum Cardiovascular: Reports: No Symptoms. Denies: Chest Pain, Blood Pressure Problem, Claudication, Dyspnea on Exertion, Edema, Lightheadedness, Orthopnea, Palpitations, PND, Syncope Endocrine: Reports: No Symptoms GI/Abdominal: Reports: No Symptoms : Reports: No Symptoms Musculoskeletal: Reports: No Symptoms Skin: Reports: No Symptoms Neurological: Reports: No Symptoms Psychiatric: Reports: No Symptoms Hematologic/Lymphatic: Reports: No Symptoms Immunologic: Reports: No Symptoms ED EXAM, GENERAL - Physical Exam Exam: See Below Exam Limited By: No Limitations General Appearance: Alert, WD/WN, No Apparent Distress Eye Exam: Bilateral Eye: Normal Inspection, PERRL Ears: Normal External Exam, Normal Canal, Hearing Grossly Normal Nose: Normal Inspection, Normal Mucosa, No Blood Throat/Mouth: Normal Inspection, Normal Lips, Normal Teeth, Normal Gums, Normal Oropharynx, Normal Voice, No Airway Compromise Head: Atraumatic, Normocephalic Neck: Normal Inspection, Supple, Non-Tender, Full Range of Motion Respiratory/Chest: No Respiratory Distress, Lungs Clear, Normal Breath Sounds, No Accessory Muscle Use, Chest Non-Tender Cardiovascular: Normal Peripheral Pulses, No JVD, No Murmur, Irregularly Irregular. No: Regular Rate, Rhythm, No Edema, No Gallop, No Rub Peripheral Pulses: 3+: Radial (L), Radial (R) GI/Abdominal: Normal Bowel Sounds, Soft, Non-Tender, No Organomegaly, No Distention, No Abnormal Bruit, No Mass, Pelvis Stable, Other (Negative hepatojugular reflux) Back Exam: Normal Inspection, Full Range of Motion Extremities: Normal Inspection, Normal Range of Motion, Non-Tender, No Pedal Edema (+1 blat edema ), Normal Capillary Refill. No: Pedal Edema Neurological: Alert, Oriented, CN II-XII Intact, Normal Cognition, Normal Gait, Normal Reflexes, No Motor/Sensory Deficits Psychiatric: Normal Affect, Normal Mood Skin Exam: Warm, Dry, Intact, Normal Color, No Rash #1 Interpretation EKG Date: 09/30/20 Time: 08:05 Rhythm: A-Fib Course - Vital Signs Text/Narrative:: EKG A. fib CBC BMP BNP chest x-ray Lisinopril 20 mg p.o. secondary to patient's blood pressure being elevated Chest x-ray shows CHF and correlation with a BNP of 8085 Discussed diagnosis and course of treatment with the patient and son. Spoke with primary care provider Dr. Wagner she said to give the on-call physician the patient's. Spoke with Dr. Deloris Jara who will admit for CHF. Patient was started on half a inch Nitropaste 20 mg Lasix IV normal saline at TKO decision to admit the patient at 0 930 covid neg Last Recorded V/S: Last Vital Signs Temp 36.2 C 09/30/20 09:07 Pulse 108 H 09/30/20 09:20 Resp 18 09/30/20 09:20 BP 195/149 H 09/30/20 09:20 Pulse Ox 94 L 09/30/20 09:20 - Orders/Labs/Meds Orders: Active Orders 24 hr Category Date Time Status EKG Documentation Completion [RC] STAT Care 09/30/20 07:59 Active Sodium Chloride 0.9% [Normal Saline] 1,000 ml Med 09/30/20 09:30 Active IV ASDIRECTED Medication Orders Sodium Chloride (Normal Saline) 1,000 mls @ 10 drops/hr IV ASDIRECTED EDGAR Last Admin: 09/30/20 09:36 Dose: 10 drops/hr Documented by: CHAS Labs: Laboratory Tests 09/30/20 09/30/20 09/30/20 Range/Units 08:15 08:15 08:15 WBC 6.2 (4.0-10.0) x10^3/uL RBC 4.44 (4.00-5.50) x10^6/uL Hgb 14.8 (12.0-16.0) g/dL Hct 43.9 (33.0-47.0) % MCV 98.9 H D (78.0-93.0) fL MCH 33.3 H (26.0-32.0) pg MCHC 33.7 (32.0-36.0) g/dL RDW Coeff of Artur 13.3 (10.0-15.0) % Plt Count 110 L (130-400) x10^3/uL Neut % (Auto) 85.5 H (50.0-80.0) % Lymph % (Auto) 7.7 L (25.0-50.0) % [place] % (Auto) 6.3 (2.0-11.0) % Eos % (Auto) 0.2 (0.0-4.0) % Baso % (Auto) 0.3 (0.2-1.2) % Sodium 132 L (136-145) mmol/L Potassium 4.1 (3.5-5.1) mmol/L Chloride 98 (98-107) mmol/L Carbon Dioxide 28 (21-32) mmol/L Anion Gap 10.1 (5-15) mmol/L BUN 25 H (7-18) mg/dL Creatinine 1.2 H (0.55-1.02) mg/dL Est Cr Clr Drug Dosing TNP Estimated GFR (MDRD) 43 Glucose 123 H (70-99) mg/dL Calcium 9.3 (8.5-10.1) mg/dL Troponin I High Sens 19 (<=51) ng/L NT-Pro-B Natriuret Pep 8085 H (<=450) pg/mL SARS CoV-2 RNA Rapid REYNA (NEGATIVE) 09/30/20 Range/Units 10:25 WBC (4.0-10.0) x10^3/uL RBC (4.00-5.50) x10^6/uL Hgb (12.0-16.0) g/dL Hct (33.0-47.0) % MCV (78.0-93.0) fL MCH (26.0-32.0) pg MCHC (32.0-36.0) g/dL RDW Coeff of Artur (10.0-15.0) % Plt Count (130-400) x10^3/uL Neut % (Auto) (50.0-80.0) % Lymph % (Auto) (25.0-50.0) % [place] % (Auto) (2.0-11.0) % Eos % (Auto) (0.0-4.0) % Baso % (Auto) (0.2-1.2) % Sodium (136-145) mmol/L Potassium (3.5-5.1) mmol/L Chloride (98-107) mmol/L Carbon Dioxide (21-32) mmol/L Anion Gap (5-15) mmol/L BUN (7-18) mg/dL Creatinine (0.55-1.02) mg/dL Est Cr Clr Drug Dosing Estimated GFR (MDRD) Glucose (70-99) mg/dL Calcium (8.5-10.1) mg/dL Troponin I High Sens (<=51) ng/L NT-Pro-B Natriuret Pep (<=450) pg/mL SARS CoV-2 RNA Rapid REYNA Negative (NEGATIVE) Meds: Medications Generic Name Dose Route Start Last Admin Trade Name Freq PRN Reason Stop Dose Admin Sodium Chloride 1,000 mls @ 10 drops/hr 09/30/20 09:30 09/30/20 09:36 Normal Saline IV 10 drops/hr ASDIRECTED EDGAR Administration Discontinued Medications Generic Name Dose Route Start Last Admin Trade Name Freq PRN Reason Stop Dose Admin Furosemide 20 mg 09/30/20 09:29 09/30/20 09:35 Furosemide 20 Mg/2 Ml Vial IV 09/30/20 09:30 20 mg ONETIME ONE Administration Lisinopril 20 mg 09/30/20 08:20 09/30/20 08:27 Lisinopril 20 Mg Tab PO 09/30/20 08:21 20 mg DAILY STA Administration Nitroglycerin 0.5 gm 09/30/20 09:28 09/30/20 09:35 Nitroglycerin 2% Oint 1 Gm Ud Packet TOP 09/30/20 09:29 0.5 gm ONETIME ONE Administration Departure - Departure Time of Disposition: 09:25 Disposition: Admitted As Inpatient 64 Condition: Good Clinical Impression: CHF (congestive heart failure), Afib, HTN (hypertension), High risk medication use - Discharge Information *PRESCRIPTION DRUG MONITORING PROGRAM REVIEWED*: No *COPY OF PRESCRIPTION DRUG MONITORING REPORT IN PATIENT FRANCIS: No Referrals: Lucy Wagner MD [Primary Care Provider] - Forms: ED Department Discharge Sepsis Event Note (ED) - Focused Exam Vital Signs: Vital Signs Temp Pulse Resp BP BP Pulse Ox 09/30/20 09:20 108 H 18 195/149 H 94 L 09/30/20 09:07 36.2 C 100 16 165/115 H 94 L 09/30/20 09:04 72 22 H 183/123 H 93 L 09/30/20 08:47 86 20 173/119 H 94 L 09/30/20 08:27 187/125 H - Problem List & Annotations (1) Hypertension, essential SNOMED Code(s): 48595856 Code(s): I10 - ESSENTIAL (PRIMARY) HYPERTENSION Status: Chronic Current Visit: No Annotation/Comment:: Blood pressures have been quite high in the mornings of her hospital stay but always come down throughout the day. She has been asymptomatic. No changes have been made to her blood pressure medications and she will follow-up outpatient regarding this as well. (2) Afib SNOMED Code(s): 57987232 Code(s): I48.91 - UNSPECIFIED ATRIAL FIBRILLATION Status: Acute Current Visit: Yes (3) CHF (congestive heart failure) SNOMED Code(s): 56438736 Code(s): I50.9 - HEART FAILURE, UNSPECIFIED Status: Acute Current Visit: Yes (4) High risk medication use SNOMED Code(s): 265405373, 261932055 Code(s): Z79.899 - OTHER BOOKING SUPERVISOR (CURRENT) DRUG THERAPY Status: Acute Current Visit: Yes - My Orders Last 24 Hours: My Active Orders 09/30/20 07:59 EKG Documentation Completion [RC] STAT 09/30/20 09:30 Sodium Chloride 0.9% [Normal Saline] 1,000 ml IV ASDIRECTED - Assessment/Plan Last 24 Hours: My Active Orders 09/30/20 07:59 EKG Documentation Completion [RC] STAT 09/30/20 09:30 Sodium Chloride 0.9% [Normal Saline] 1,000 ml IV ASDIRECTED
--- NOTE | 2020-09-30 09:06 | CR ---
[id number] RAD/RAD Chest PA or AP 1V EXAM: SINGLE VIEW CHEST. INDICATION: SHORTNESS OF BREATH COMPARISON: CORRELATION IS MADE WITH MARCH 13, 2019 FINDINGS: There is moderate edema The cardiac silhouette is enlarged The aorta is tortuous There are small bilateral effusions IMPRESSION: CHF Pollo Marquez MD 09/30/20 0905 Thank you for allowing us to participate in the care of your patient.
[2020-09-30] MEDS ORDERED: Nitroglycerin 2% Oint 1 GM UD Packet TOP ONE (09:28)
[2020-09-30] MEDS ORDERED: Furosemide 20 MG/2 ML VIAL IV ONE (09:29)
[2020-09-30] MEDS ORDERED: Sodium Chloride 0.9% 1,000 ML IV SCH (09:30)
[2020-09-30] MEDS ORDERED: Ondansetron 4 MG Tab.DIS PO PRN (11:10)
--- NOTE | 2020-09-30 12:10 | PCM.HP.2 ---
H&P History of Present Illness - General Date of Service: 09/30/20 Admit Problem/Dx: Admission Diagnosis/Problem Admission Diagnosis/Problem CHF, Congestive heart failure - History of Present Illness Initial Comments - Free Text/Narative: Yanique is an 80yoF with a PMH of HTN, Chronic diastolic CHF, new onset of atrial flutter, Pulmonary HTN, seasonal allergies, restless leg syndrome who presented to the ER early this morning for increasing SOB. She was recently (09/19/20) diagnosed with atrial flutter and was initiated on eliquis 2.5mg BID and her metoprolol was increased from 100mg BID to 150mg am and 100mg pm. She has noted more swelling in her legs over the last few weeks and over the last few days has developed increasing SOB. She was so short of breath this morning she called EMS. On arrival to the ED she was noted to be hypertensive. Her pulse rate was in the 80s. Her oxygen saturation was in the low 90s with respiratory rate of 20. She did not take her morning medications prior to coming in her blood pressure and pulse did climb throughout her stay in the ER. CBC was relatively normal other than a platelet count of 110. Her chemistry panel is notable for sodium of 132, creatinine of 1.2 (baseline 0.8-1.0), glucose 123. Rapid COVID was negative. ProBNP was 8085. Chest x-ray demonstrated moderate fluid throughout the lungs as well as some small bilateral pleural effusions. Spoke with patient and her son about admission to the hospital. Discussed that this is needed to initiate some IV diuretics to help her get the fluid off. We will also monitor her oxygen saturation. They're quite concerned about her getting in to see a kitchen clerk even all of her heart condition and the recent diagnosis of the atrial flutter. Discussed with the patient and her son not primary care or well versed in handling atrial fib and atrial flutter. Ultimately, there can't both staying here for the time being. Of course, we'll transfer out if her condition worsens or fails to improve. - Related Data Allergies/Adverse Reactions: Allergies Allergy/AdvReac Type Severity Reaction Status Date / Time codeine AdvReac Stomach Verified 09/30/20 08:32 Ache Home Medications: Home Meds Metoprolol Tartrate [Lopressor] 150 mg PO DAILY 08/01/14 [History] lisinopriL [Prinivil] 20 mg PO BID 08/01/14 [History] rOPINIRole HCl [Requip] 1 mg PO BEDTIME 08/01/14 [History] Acetaminophen 500 mg PO Q4H PRN 09/30/20 [History] Apixaban [Eliquis] 2.5 mg PO BID 09/30/20 [History] Metoprolol Tartrate 100 mg PO BEDTIME 09/30/20 [History] Psyllium Husk (With Sugar) [Metamucil Powder] 1 tsp PO DAILY 09/30/20 [History] Sertraline HCl 12.5 mg PO DAILY 09/30/20 [History] Sodium Chloride/KCl [Thermotabs] 1 tab PO DAILY 09/30/20 [History] Spironolactone [Aldactone] 25 mg PO DAILY 09/30/20 [History] amLODIPine Besylate [Amlodipine Besylate] 10 mg PO DAILY 09/30/20 [History] hydroCHLOROthiazide [Hydrochlorothiazide] 25 mg PO DAILY 09/30/20 [History] Past Medical History HEENT History: Reports: Allergic Rhinitis Cardiovascular History: Reports: Afib, Hypertension Other Cardiovascular History: aortic and mitral regurgitation Gastrointestinal History: Reports: Diverticulosis Neurological History: Reports: Other (See Below) Other Neuro History: Restless leg syndrome Endocrine/Metabolic History: Reports: Vitamin D Deficiency - Infectious Disease History Infectious Disease History: Reports: Shingles - Past Surgical History Musculoskeletal Surgical History: Reports: Knee Replacement Other Musculoskeletal Surgeries/Procedures:: Bilateral knee replacement Social & Family History - Tobacco Use Tobacco Use Status *Q: Never Tobacco User - Caffeine Use Caffeine Use: Reports: Coffee - Recreational Drug Use Recreational Drug Use: No H&P Review of Systems - Review of Systems: Review Of Systems: See Below General: Reports: Weakness, Fatigue HEENT: Reports: No Symptoms Pulmonary: Reports: Shortness of Breath Cardiovascular: Reports: Dyspnea on Exertion, Orthopnea Gastrointestinal: Reports: No Symptoms Genitourinary: Reports: No Symptoms Musculoskeletal: Reports: No Symptoms Skin: Reports: Change in Color (purple fingers/toes) Psychiatric: Reports: No Symptoms Neurological: Reports: No Symptoms Exam - Exam Exam: See Below - Vital Signs Vital Signs: Last Vital Signs Temp 97.2 F 09/30/20 09:07 Pulse 108 H 09/30/20 09:20 Resp 18 09/30/20 09:20 BP 195/149 H 09/30/20 09:20 Pulse Ox 94 L 09/30/20 09:20 Weight: 160 lb - Exam Quality Assessment: Supplemental Oxygen (2L at the time of intake, sat monitor not picking up well (patien fluctuating between 75-99%)) General: Alert, Oriented HEENT: Conjunctiva Clear, EOMI, Mucosa Moist & [place] Neck: Supple, Trachea Midline Lungs: Normal Respiratory Effort, Crackles (fine crackles in the bilateral bases) Cardiovascular: Irregular Rhythm, Tachycardia (110s) GI/Abdominal Exam: Normal Bowel Sounds, Soft, Non-Tender Extremities: Non-Tender, No Pedal Edema, Other (fingers/toes are puple in color but cap refill is preserved at <2s) Skin: Warm, Dry, Intact Neuro Extensive - Mental Status: Alert, Oriented x3, Normal Mood/Affect, Normal Cognition Psychiatric: Alert, Normal Affect, Normal Mood - Patient Data Lab Results Last 24 hrs: Laboratory Results - last 24 hr 09/30/20 09/30/20 09/30/20 Range/Units 08:15 08:15 08:15 WBC 6.2 (4.0-10.0) x10^3/uL RBC 4.44 (4.00-5.50) x10^6/uL Hgb 14.8 (12.0-16.0) g/dL Hct 43.9 (33.0-47.0) % MCV 98.9 H D (78.0-93.0) fL MCH 33.3 H (26.0-32.0) pg MCHC 33.7 (32.0-36.0) g/dL RDW Coeff of Artur 13.3 (10.0-15.0) % Plt Count 110 L (130-400) x10^3/uL Neut % (Auto) 85.5 H (50.0-80.0) % Lymph % (Auto) 7.7 L (25.0-50.0) % [place] % (Auto) 6.3 (2.0-11.0) % Eos % (Auto) 0.2 (0.0-4.0) % Baso % (Auto) 0.3 (0.2-1.2) % Sodium 132 L (136-145) mmol/L Potassium 4.1 (3.5-5.1) mmol/L Chloride 98 (98-107) mmol/L Carbon Dioxide 28 (21-32) mmol/L Anion Gap 10.1 (5-15) mmol/L BUN 25 H (7-18) mg/dL Creatinine 1.2 H (0.55-1.02) mg/dL Est Cr Clr Drug Dosing TNP Estimated GFR (MDRD) 43 Glucose 123 H (70-99) mg/dL Calcium 9.3 (8.5-10.1) mg/dL Troponin I High Sens 19 (<=51) ng/L NT-Pro-B Natriuret Pep 8085 H (<=450) pg/mL SARS CoV-2 RNA Rapid REYNA (NEGATIVE) 09/30/20 Range/Units 10:25 WBC (4.0-10.0) x10^3/uL RBC (4.00-5.50) x10^6/uL Hgb (12.0-16.0) g/dL Hct (33.0-47.0) % MCV (78.0-93.0) fL MCH (26.0-32.0) pg MCHC (32.0-36.0) g/dL RDW Coeff of Artur (10.0-15.0) % Plt Count (130-400) x10^3/uL Neut % (Auto) (50.0-80.0) % Lymph % (Auto) (25.0-50.0) % [place] % (Auto) (2.0-11.0) % Eos % (Auto) (0.0-4.0) % Baso % (Auto) (0.2-1.2) % Sodium (136-145) mmol/L Potassium (3.5-5.1) mmol/L Chloride (98-107) mmol/L Carbon Dioxide (21-32) mmol/L Anion Gap (5-15) mmol/L BUN (7-18) mg/dL Creatinine (0.55-1.02) mg/dL Est Cr Clr Drug Dosing Estimated GFR (MDRD) Glucose (70-99) mg/dL Calcium (8.5-10.1) mg/dL Troponin I High Sens (<=51) ng/L NT-Pro-B Natriuret Pep (<=450) pg/mL SARS CoV-2 RNA Rapid REYNA Negative (NEGATIVE) Result Diagrams: 09/30/20 08:15 09/30/20 08:15 Sepsis Event Note - Evaluation Sepsis Screening Result: No Definite Risk - Focused Exam Vital Signs: Vital Signs Temp Pulse Resp BP BP Pulse Ox 09/30/20 09:20 108 H 18 195/149 H 94 L 09/30/20 09:07 97.2 F 100 16 165/115 H 94 L 09/30/20 09:04 72 22 H 183/123 H 93 L 09/30/20 08:47 86 20 173/119 H 94 L 09/30/20 08:27 187/125 H *Q Meaningful Use (ADM) - VTE *Q VTE Anticoagulation Contraindications: Med/TX Not Indicated/Need - Problem List (1) CHF (congestive heart failure) SNOMED Code(s): 59126489 ICD Code: I50.9 - HEART FAILURE, UNSPECIFIED Status: Acute Current Visit: Yes (2) Atrial flutter SNOMED Code(s): 7144472 ICD Code: I48.92 - UNSPECIFIED ATRIAL FLUTTER Status: Acute Current Visit: Yes (3) CKD (chronic kidney disease) stage 3, GFR 30-59 ml/min SNOMED Code(s): 009111541 ICD Code: N18.30 - CHRONIC KIDNEY DISEASE, STAGE 3 UNSPECIFIED Status: Acute Current Visit: Yes Problem List Initiated/Reviewed/Updated: Yes Orders Last 24hrs: Active Orders 24 hr Category Date Time Status Patient Status [ADT] Routine ADT 09/30/20 10:50 Active Cardiac Monitoring [RC] . DIRECTED Care 09/30/20 10:50 Active Cardiac Monitoring [RC] 02,06,,14,18,22 Care 09/30/20 11:11 Active EKG Documentation Completion [RC] STAT Care 09/30/20 07:59 Active Height and Weight [RC] 07 Care 09/30/20 11:10 Active Intake and Output [RC] ,18 Care 09/30/20 11:11 Active Pulse Oximetry [RC] 02,06,10,14,18,22 Care 09/30/20 11:11 Active Up With Assistance [RC] 08,20 Care 09/30/20 11:10 Active VTE/DVT Education [RC] .PRN Care 09/30/20 11:10 Active Vital Signs [RC] 02,06,10,14,18,22 Care 09/30/20 11:10 Active 2 Gram Sodium Diet [DIET] Diet 09/30/20 Lunch Active Regular Diet [DIET] Diet 09/30/20 Lunch Active CBC W/O DIFF,HEMOGRAM [HEME] AM Lab 10/01/20 05:11 Ordered COMPREHENSIVE METABOLIC PN,CMP [CHEM] AM Lab 10/01/20 05:11 Ordered Acetaminophen [TylenoL] Med 09/30/20 11:10 Active 650 mg PO Q4H PRN Apixaban [Eliquis] Med 09/30/20 20:00 Ordered 2.5 mg PO BID Furosemide [Lasix] Med 09/30/20 16:00 Ordered 20 mg IV BIDDIURETIC Metoprolol Tartrate Med 09/30/20 20:00 Ordered 100 mg PO BEDTIME Metoprolol Tartrate Med 10/01/20 08:00 Ordered 150 mg PO DAILY Ondansetron [Zofran ODT] Med 09/30/20 11:10 Active 4 mg PO Q4H PRN Psyllium Husk (With Sugar) [Metamucil Powder] Med 10/01/20 08:00 Ordered 1 tsp PO DAILY Sertraline [Zoloft] Med 10/01/20 08:00 Ordered 12.5 mg PO DAILY Sodium Chloride 0.9% [Normal Saline] 1,000 ml Med 09/30/20 09:30 Active IV ASDIRECTED Sodium Chloride/KCl [Thermotabs] Med 10/01/20 08:00 Ordered 1 each PO DAILY Spironolactone [Aldactone] Med 09/30/20 12:00 Ordered 25 mg PO DAILY amLODIPine [Norvasc] Med 09/30/20 12:00 Ordered 10 mg PO DAILY lisinopriL [Prinivil] Med 10/01/20 08:00 Ordered 20 mg PO BID rOPINIRole HCl [Requip] Med 09/30/20 20:00 Ordered 1 mg PO BEDTIME Anticoagulation Contraindications VTE [AST] Per Unit Oth 09/30/20 11:10 Ordered Routine Resuscitation Status Routine Resus Stat 09/30/20 11:10 Ordered Medication Orders Acetaminophen (Acetaminophen 325 Mg Tab) 650 mg PO Q4H PRN PRN Reason: Pain (Mild 1-3)/fever Amlodipine Besylate (Amlodipine 10 Mg Tab) 10 mg PO DAILY EDGAR Apixaban (Apixaban 2.5 Mg Tab) 2.5 mg PO BID EDGAR Furosemide (Furosemide 20 Mg/2 Ml Vial) 20 mg IV BIDDIURETIC EDGAR Stop: 10/01/20 16:01 Sodium Chloride (Normal Saline) 1,000 mls @ 10 drops/hr IV ASDIRECTED EDGAR Last Admin: 09/30/20 09:36 Dose: 10 drops/hr Documented by: CHAS Lisinopril (Lisinopril 20 Mg Tab) 20 mg PO BID EDGAR Non-Formulary Medication (Metoprolol Tartrate) 150 mg PO DAILY EDGAR Non-Formulary Medication (Metoprolol Tartrate) 100 mg PO BEDTIME EDGAR Non-Formulary Medication (Psyllium Husk (With Sugar) [Metamucil Powder]) 1 tsp PO DAILY EDGAR Non-Formulary Medication (Ropinirole Hcl [Requip]) 1 mg PO BEDTIME EDGAR Ondansetron HCl (Ondansetron 4 Mg Tab.Dis) 4 mg PO Q4H PRN PRN Reason: nausea, able to take PO Oral Electrolytes (Sodium Chloride/Potassium Chloride Tab) 1 each PO DAILY EDGAR Sertraline HCl (Sertraline 25 Mg Tab) 12.5 mg PO DAILY EDGAR Spironolactone (Spironolactone 25 Mg Tab) 25 mg PO DAILY [facility] Assessment/Plan Comment:: Yanique is an 80yoF who is admitted for acute on chronic diastolic CHF in the setting of new onset a.flutter (diagnosed 09/19/20). Acute on Chronic Diastolic CHF - pro-BNP 8085 - CXR with fluid overload as well as small Adderall pleural effusions Plan: - Lasix 20mg BID - Holding home HCTZ - Continue all other home BP meds as previously ordered - I+O's, daily weights - Supplemental O2 as needed - BMP, CBC in the am A.flutter - Recently diagnosed (09/19/20) Plan: - Continue Eliquis 2.5mg BID - Continue home metoprolol at 150mg am, 100mg pm - Continuous tele Chronic: - HTN/CHF/PulmHTN: continue home meds metoprolol, spironolactony, lisinopril, norvasc. holding HCTZ - RLS: continue home requip - Mood: continue home zoloft 12.5mg daily - Constipation: continue home metamucil daily Diet: Heart health/salt restriction DVT: DOAC CODE: DNR Disposition: Patient admitted inpatient for acute on chronic diastolic CHF. Anticipate 2-3 days for diuresis. Oxygen supplementation as needed to maintain saturations. Anticipate the patient will be discharging home on oral Lasix/Bumex. - Mortality Measure Prognosis:: Good
[2020-09-30] MEDS: Sodium Chloride/Potassium Chloride Tab PO SCH (13:43)
[2020-09-30] MEDS: Apixaban 2.5 MG Tab PO SCH ×2 (13:44→20:26)
[2020-09-30] MEDS: Spironolactone 25 MG Tab PO SCH (13:44)
[2020-09-30] MEDS: amLODIPine 10 MG Tab PO SCH (13:46)
[2020-09-30] MEDS: Metoprolol Tartrate 50 MG Tab PO SCH ×2 (13:46→20:26)
[2020-09-30] MEDS: Furosemide 20 MG/2 ML VIAL IV SCH (17:07)
[2020-09-30] MEDS: rOPINIRole 0.5 MG Tab PO SCH (20:27)
[2020-09-30] MEDS: Lisinopril 20 MG Tab PO SCH (20:27)
[2020-09-30] MEDS: Acetaminophen 325 MG Tab PO PRN (20:28)
[2020-09-30] MEDS: CRAMPS TOP PRN (21:21)
[2020-10-01] MEDS: Acetaminophen 325 MG Tab PO PRN ×2 (01:40→19:02)
[2020-10-01 07:25] LABS: ANION GAP 8.2 mmol/L (5-15)
[2020-10-01] MEDS: Metoprolol Tartrate 50 MG Tab PO SCH ×2 (07:50→19:59)
[2020-10-01] MEDS: Furosemide 20 MG/2 ML VIAL IV SCH ×2 (07:50→15:26)
[2020-10-01] MEDS: Psyllium Husk Powder Sugar Free 5.85 GM Packet PO SCH (07:50)
[2020-10-01] MEDS: Sertraline 25 MG Tab PO SCH (07:51)
[2020-10-01] MEDS: Spironolactone 25 MG Tab PO SCH (07:51)
[2020-10-01] MEDS: Apixaban 2.5 MG Tab PO SCH ×2 (07:51→19:59)
[2020-10-01] MEDS: Lisinopril 20 MG Tab PO SCH ×2 (07:51→19:58)
[2020-10-01] MEDS: amLODIPine 10 MG Tab PO SCH (07:51)
[2020-10-01] MEDS: Sodium Chloride/Potassium Chloride Tab PO SCH (07:51)
--- NOTE | 2020-10-01 10:09 | PCM.PN ---
- General Info Date of Service: 10/01/20 Admission Dx/Problem (Free Text): Admission Diagnosis/Problem Admission Diagnosis/Problem CHF, Congestive heart failure Subjective Update: Yanique is an 80yoF with a PMH of HTN, Chronic diastolic CHF, new onset of atrial flutter, Pulmonary HTN, seasonal allergies, restless leg syndrome who presented to the ER on 09/30/20 increasing SOB. She was recently (09/19/20) diagnosed with atrial flutter and was initiated on eliquis 2.5mg BID and her metoprolol was increased from 100mg BID to 150mg am and 100mg pm. She has noted more swelling in her legs over the last few weeks and over the last few days has developed increasing SOB. She was so short of breath this morning she called EMS. On arrival to the ED she was noted to be hypertensive. Her pulse rate was in the 80s. Her oxygen saturation was in the low 90s with respiratory rate of 20. She did not take her morning medications prior to coming in her blood pressure and p ulse did climb throughout her stay in the ER. CBC was relatively normal other than a platelet count of 110. Her chemistry panel is notable for sodium of 132, creatinine of 1.2 (baseline 0.8-1.0), glucose 123. Rapid COVID was negative. ProBNP was 8085. Chest x-ray demonstrated moderate fluid throughout the lungs as well as some small bilateral pleural effusions. She did well overnight. Unfortunately, ins and outs are not documented well and I don't have her morning weight yet. The patient subjectively feels quite a bit better. She states that her shortness of breath has drastically improved. She maintains on 2 L of oxygen to maintain her saturations in the upper 90s. She has now gotten 3 doses of Lasix in the IV. She has been voiding quite a bit. Her legs are less swollen. She is hopeful to go home today but we discussed that he is still on oxygen and requiring more fluid to be pulled off. She is agreeable to staying one more night. - Review of Systems General: Reports: No Symptoms HEENT: Reports: No Symptoms Pulmonary: Reports: No Symptoms (SOB improved) Cardiovascular: Reports: No Symptoms Gastrointestinal: Reports: No Symptoms Genitourinary: Reports: No Symptoms Musculoskeletal: Reports: No Symptoms Skin: Reports: No Symptoms Neurological: Reports: No Symptoms Psychiatric: Reports: No Symptoms - Patient Data Vitals - Most Recent: Last Vital Signs Temp 97.4 F 10/01/20 05:04 Pulse 105 H 10/01/20 07:50 Resp 20 10/01/20 05:04 BP 137/103 H 10/01/20 07:51 Pulse Ox 95 10/01/20 07:13 Weight - Most Recent: 160 lb I&O - Last 24 Hours: Intake & Output 09/30/20 10/01/20 10/01/20 22:59 06:59 14:59 Intake Total 120 100 350 Output Total 400 Balance 120 -300 350 Lab Results Last 24 Hours: Laboratory Results - last 24 hr 09/30/20 10/01/20 10/01/20 Range/Units 10:25 06:26 06:26 WBC 3.8 L (4.0-10.0) x10^3/uL RBC 4.11 (4.00-5.50) x10^6/uL Hgb 13.6 (12.0-16.0) g/dL Hct 40.6 (33.0-47.0) % MCV 98.8 H (78.0-93.0) fL MCH 33.1 H (26.0-32.0) pg MCHC 33.5 (32.0-36.0) g/dL RDW Coeff of Artur 13.3 (10.0-15.0) % Plt Count 95 L (130-400) x10^3/uL Sodium 134 L (136-145) mmol/L Potassium 4.2 (3.5-5.1) mmol/L Chloride 99 (98-107) mmol/L Carbon Dioxide 31 (21-32) mmol/L Anion Gap 8.2 (5-15) mmol/L BUN 29 H (7-18) mg/dL Creatinine 1.1 H (0.55-1.02) mg/dL Est Cr Clr Drug Dosing 36.91 mL/min Estimated GFR (MDRD) 48 Glucose 102 H (70-99) mg/dL Calcium 8.9 (8.5-10.1) mg/dL Corrected Calcium 9.4 (8.5-10.1) mg/dL Total Bilirubin 2.2 H (0.2-1.0) mg/dL AST 30 (15-37) U/L ALT 50 (14-59) U/L Alkaline Phosphatase 104 (46-116) U/L Total Protein 6.7 (6.4-8.2) g/dL Albumin 3.4 (3.4-5.0) g/dL Globulin 3.3 Albumin/Globulin Ratio 1.03 SARS CoV-2 RNA Rapid REYNA Negative (NEGATIVE) Med Orders - Current: Current Medications Acetaminophen (Acetaminophen 325 Mg Tab) 650 mg PO Q4H PRN PRN Reason: Pain (Mild 1-3)/fever Last Admin: 10/01/20 01:40 Dose: 650 mg Documented by: Amlodipine Besylate (Amlodipine 10 Mg Tab) 10 mg PO DAILY [facility] Last Admin: 10/01/20 07:51 Dose: 10 mg Documented by: Apixaban (Apixaban 2.5 Mg Tab) 2.5 mg PO BID [facility] Last Admin: 10/01/20 07:51 Dose: 2.5 mg Documented by: Furosemide (Furosemide 20 Mg/2 Ml Vial) 20 mg IV BIDDIURETIC [facility] Stop: 10/01/20 16:01 Last Admin: 10/01/20 07:50 Dose: 20 mg Documented by: Sodium Chloride (Normal Saline) 1,000 mls @ 10 drops/hr IV ASDIRECTED [facility] Last Admin: 09/30/20 09:36 Dose: 10 drops/hr Documented by: Lisinopril (Lisinopril 20 Mg Tab) 20 mg PO BID [facility] Last Admin: 10/01/20 07:51 Dose: 20 mg Documented by: Metoprolol Tartrate (Metoprolol Tartrate 50 Mg Tab) 150 mg PO DAILY [facility] Last Admin: 10/01/20 07:50 Dose: 150 mg Documented by: Metoprolol Tartrate (Metoprolol Tartrate 50 Mg Tab) 100 mg PO BEDTIME [facility] Last Admin: 09/30/20 20:26 Dose: 100 mg Documented by: Leg Cramps Ointment ((Own Supply)) 1 each TOP BID PRN PRN Reason: calf & foot cramps Last Admin: 09/30/20 21:21 Dose: 1 each Documented by: Ondansetron HCl (Ondansetron 4 Mg Tab.Dis) 4 mg PO Q4H PRN PRN Reason: nausea, able to take PO Oral Electrolytes (Sodium Chloride/Potassium Chloride Tab) 1 each PO DAILY [facility] Last Admin: 10/01/20 07:51 Dose: 1 each Documented by: Psyllium Husk (Psyllium Husk Powder Sugar Free 5.85 Gm Packet) 1 pkt PO DAILY [facility] Last Admin: 10/01/20 07:50 Dose: 1 pkt Documented by: Ropinirole HCl (Ropinirole 0.5 Mg Tab) 1 mg PO BEDTIME [facility] Last Admin: 09/30/20 20:27 Dose: 1 mg Documented by: Sertraline HCl (Sertraline 25 Mg Tab) 12.5 mg PO DAILY [facility] Last Admin: 10/01/20 07:51 Dose: 12.5 mg Documented by: Spironolactone (Spironolactone 25 Mg Tab) 25 mg PO DAILY [facility] Last Admin: 10/01/20 07:51 Dose: 25 mg Documented by: Discontinued Medications Furosemide (Furosemide 20 Mg/2 Ml Vial) 20 mg IV ONETIME ONE Stop: 09/30/20 09:30 Last Admin: 09/30/20 09:35 Dose: 20 mg Documented by: Lisinopril (Lisinopril 20 Mg Tab) 20 mg PO DAILY [facility] Stop: 09/30/20 08:21 Last Admin: 09/30/20 08:27 Dose: 20 mg Documented by: Nitroglycerin (Nitroglycerin 2% Oint 1 Gm Ud Packet) 0.5 gm TOP ONETIME ONE Stop: 09/30/20 09:29 Last Admin: 09/30/20 09:35 Dose: 0.5 gm Documented by: - Exam Quality Assessment: Supplemental Oxygen (2L with sats >95%) General: Alert, Oriented (to person/place/situation), Cooperative, No Acute Distress HEENT: EOMI, Mucous Membr. Moist/[place] Neck: Supple Lungs: Normal Respiratory Effort, Crackles (very faint in the bases, improved from yesterday) Cardiovascular: Regular Rate, Irregular Rhythm GI/Abdominal Exam: Normal Bowel Sounds, Soft, Non-Tender Extremities: Normal Inspection, Non-Tender, Pedal Edema (trace) Peripheral Pulses: 2+: Radial (L), Radial (R), Dorsalis Pedis (L), Dorsalis Pedis (R) Skin: Warm, Dry, Other (digit coloration drastically improved, no longer purple) Neurological: No New Focal Deficit Psy/Mental Status: Alert, Normal Affect, Normal Mood - Patient Data Lab Results Last 24 hrs: Laboratory Results - last 24 hr 09/30/20 10/01/20 10/01/20 Range/Units 10:25 06:26 06:26 WBC 3.8 L (4.0-10.0) x10^3/uL RBC 4.11 (4.00-5.50) x10^6/uL Hgb 13.6 (12.0-16.0) g/dL Hct 40.6 (33.0-47.0) % MCV 98.8 H (78.0-93.0) fL MCH 33.1 H (26.0-32.0) pg MCHC 33.5 (32.0-36.0) g/dL RDW Coeff of Artur 13.3 (10.0-15.0) % Plt Count 95 L (130-400) x10^3/uL Sodium 134 L (136-145) mmol/L Potassium 4.2 (3.5-5.1) mmol/L Chloride 99 (98-107) mmol/L Carbon Dioxide 31 (21-32) mmol/L Anion Gap 8.2 (5-15) mmol/L BUN 29 H (7-18) mg/dL Creatinine 1.1 H (0.55-1.02) mg/dL Est Cr Clr Drug Dosing 36.91 mL/min Estimated GFR (MDRD) 48 Glucose 102 H (70-99) mg/dL Calcium 8.9 (8.5-10.1) mg/dL Corrected Calcium 9.4 (8.5-10.1) mg/dL Total Bilirubin 2.2 H (0.2-1.0) mg/dL AST 30 (15-37) U/L ALT 50 (14-59) U/L Alkaline Phosphatase 104 (46-116) U/L Total Protein 6.7 (6.4-8.2) g/dL Albumin 3.4 (3.4-5.0) g/dL Globulin 3.3 Albumin/Globulin Ratio 1.03 SARS CoV-2 RNA Rapid REYNA Negative (NEGATIVE) Result Diagrams: 10/01/20 06:26 10/01/20 06:26 Sepsis Event Note - Evaluation Sepsis Screening Result: No Definite Risk - Focused Exam Vital Signs: Vital Signs Temp Pulse Pulse Resp BP BP Pulse Ox 10/01/20 07:51 137/103 H 10/01/20 07:50 105 H 137/103 H 10/01/20 07:13 10/01/20 05:34 97 10/01/20 05:04 97.4 F 85 20 142/89 H 97 10/01/20 02:50 97 10/01/20 01:47 98.2 F 94 130/90 95 Pulse Ox 10/01/20 07:51 10/01/20 07:50 10/01/20 07:13 95 10/01/20 05:34 10/01/20 05:04 10/01/20 02:50 10/01/20 01:47 - Problem List & Annotations (1) CHF (congestive heart failure) SNOMED Code(s): 93256556 Code(s): I50.9 - HEART FAILURE, UNSPECIFIED Status: Acute Current Visit: Yes (2) Atrial flutter SNOMED Code(s): 9654963 Code(s): I48.92 - UNSPECIFIED ATRIAL FLUTTER Status: Acute Current Visit: Yes (3) CKD (chronic kidney disease) stage 3, GFR 30-59 ml/min SNOMED Code(s): 333705400 Code(s): N18.30 - CHRONIC KIDNEY DISEASE, STAGE 3 UNSPECIFIED Status: Acute Current Visit: Yes - Problem List Review Problem List Initiated/Reviewed/Updated: Yes - My Orders Last 24 Hours: My Active Orders 09/30/20 11:10 Height and Weight [RC] 07 Up With Assistance [RC] 08,20 VTE/DVT Education [RC] .PRN Vital Signs [RC] 02,06,,14,18,22 Acetaminophen [TylenoL] 650 mg PO Q4H PRN Ondansetron [Zofran ODT] 4 mg PO Q4H PRN Anticoagulation Contraindications VTE [AST] Per Unit Routine Resuscitation Status Routine 09/30/20 11:11 Cardiac Monitoring [RC] 02,06,,,,22 Intake and Output [RC] 06,18 Pulse Oximetry [RC] 02,06,10,14,18,22 09/30/20 Lunch 2 Gram Sodium Diet [DIET] Regular Diet [DIET] 09/30/20 12:00 Spironolactone [Aldactone] 25 mg PO DAILY amLODIPine [Norvasc] 10 mg PO DAILY 09/30/20 12:15 Apixaban [Eliquis] 2.5 mg PO BID Metoprolol Tartrate [Lopressor] 150 mg PO DAILY S[facility] Chloride/KCl [Thermotabs] 1 each PO DAILY 09/30/20 16:00 Furosemide [Lasix] 20 mg IV BIDDIURETIC 09/30/20 17:02 Leg Cramps Ointment 1 each TOP BID PRN 09/30/20 20:00 Metoprolol Tartrate [Lopressor] 100 mg PO BEDTIME lisinopriL [Prinivil] 20 mg PO BID rOPINIRole [Requip] 1 mg PO BEDTIME 10/01/20 07:12 Oxygen Therapy Adult [Oxygen Therapy] [RC] 10/01/20 08:00 Psyllium Husk/Aspartame [Metamucil Sugar Free] 1 pkt PO DAILY Sertraline [Zoloft] 12.5 mg PO DAILY 10/02/20 06:00 BMP [BASIC METABOLIC PANEL,BMP] [CHEM] Routine 10/02/20 08:00 Furosemide [Lasix] 40 mg PO DAILY - Plan Plan:: Yanique is an 80yoF who is HD#2 for acute on chronic diastolic CHF in the setting of new onset a.flutter (diagnosed 09/19/20). Acute on Chronic Diastolic CHF - pro-BNP 8085 - CXR with fluid overload as well as small Adderall pleural effusions - Patient feeling better this am, remains on some O2 Plan: - Lasix 20mg IV BID today, will switch to 40mg PO daily tomorrow - Holding home HCTZ; will likely DC at time of discharge (and switch to loop- diuretic) - Continue all other home BP meds as previously ordered - I+O's, daily weights - Supplemental O2 as needed - BMP in the am A.flutter - Recently diagnosed (09/19/20) Plan: - Continue Eliquis 2.5mg BID - Continue home metoprolol at 150mg am, 100mg pm - Continuous tele Chronic: - HTN/CHF/PulmHTN: continue home meds metoprolol, spironolactony, lisinopril, norvasc. holding HCTZ - RLS: continue home requip - Mood: continue home zoloft 12.5mg daily - Constipation: continue home metamucil daily Diet: Heart health/salt restriction DVT: DOAC CODE: DNR Disposition: Good. Anticipate another 1-2 days for diuresis as well as weaning of O2. Anticipate patient will be able to discharge home as nursing reports she is very independent with self-cares.
[2020-10-01] MEDS: CRAMPS TOP PRN (18:28)
[2020-10-01] MEDS: rOPINIRole 0.5 MG Tab PO SCH (19:59)
[2020-10-02 07:33] LABS: ANION GAP 10.1 mmol/L (5-15)
--- NOTE | 2020-10-02 08:21 | PCM.PN ---
- General Info Date of Service: 10/02/20 Subjective Update: 80 yo female hospital day #3 admitted with CHF. Patient states she is feeling good this morning. She is not short of breath but also notes that she has not been doing too much activity. She has been moving around her room without any issues but has not walked in the hallway yet. She denies any chest pain. She has been eating/drinking well and voiding frequently. She states that her son is coming from the [facility] to stay with her but he won't be here until later today. She is wondering about going home tomorrow. - Review of Systems General: Reports: No Symptoms HEENT: Reports: No Symptoms Pulmonary: Reports: No Symptoms Cardiovascular: Reports: No Symptoms Gastrointestinal: Reports: No Symptoms Genitourinary: Reports: No Symptoms Musculoskeletal: Reports: No Symptoms Skin: Reports: No Symptoms Neurological: Reports: No Symptoms - Patient Data Vitals - Most Recent: Last Vital Signs Temp 36.6 C 10/02/20 06:00 Pulse 103 H 10/02/20 06:00 Resp 20 10/02/20 06:00 BP 134/93 H 10/02/20 06:00 Pulse Ox 95 10/02/20 06:46 Weight - Most Recent: 73.028 kg I&O - Last 24 Hours: Intake & Output 10/01/20 10/02/20 10/02/20 22:59 06:59 14:59 Intake Total 20 Output Total 300 1200 Balance -280 -1200 Lab Results Last 24 Hours: Laboratory Results - last 24 hr 10/02/20 Range/Units 06:44 Sodium 135 L (136-145) mmol/L Potassium 4.1 (3.5-5.1) mmol/L Chloride 98 (98-107) mmol/L Carbon Dioxide 31 (21-32) mmol/L Anion Gap 10.1 (5-15) mmol/L BUN 24 H (7-18) mg/dL Creatinine 0.9 (0.55-1.02) mg/dL Est Cr Clr Drug Dosing 45.12 mL/min Estimated GFR (MDRD) 60 Glucose 90 (70-99) mg/dL Calcium 8.7 (8.5-10.1) mg/dL Med Orders - Current: Current Medications Acetaminophen (Acetaminophen 325 Mg Tab) 650 mg PO Q4H PRN PRN Reason: Pain (Mild 1-3)/fever Last Admin: 10/01/20 19:02 Dose: 650 mg Documented by: Amlodipine Besylate (Amlodipine 10 Mg Tab) 10 mg PO DAILY [facility] Last Admin: 10/01/20 07:51 Dose: 10 mg Documented by: Apixaban (Apixaban 2.5 Mg Tab) 2.5 mg PO BID [facility] Last Admin: 10/01/20 19:59 Dose: 2.5 mg Documented by: Furosemide (Furosemide 40 Mg Tab) 40 mg PO DAILY [facility] Sodium Chloride (Normal Saline) 1,000 mls @ 10 drops/hr IV ASDIRECTED [facility] Last Admin: 09/30/20 09:36 Dose: 10 drops/hr Documented by: Lisinopril (Lisinopril 20 Mg Tab) 20 mg PO BID [facility] Last Admin: 10/01/20 19:58 Dose: 20 mg Documented by: Metoprolol Tartrate (Metoprolol Tartrate 50 Mg Tab) 150 mg PO DAILY [facility] Last Admin: 10/01/20 07:50 Dose: 150 mg Documented by: Metoprolol Tartrate (Metoprolol Tartrate 50 Mg Tab) 100 mg PO BEDTIME [facility] Last Admin: 10/01/20 19:59 Dose: 100 mg Documented by: Leg Cramps Ointment ((Own Supply)) 1 each TOP BID PRN PRN Reason: calf & foot cramps Last Admin: 10/01/20 18:28 Dose: 1 each Documented by: Ondansetron HCl (Ondansetron 4 Mg Tab.Dis) 4 mg PO Q4H PRN PRN Reason: nausea, able to take PO Oral Electrolytes (Sodium Chloride/Potassium Chloride Tab) 1 each PO DAILY [facility] Last Admin: 10/01/20 07:51 Dose: 1 each Documented by: Psyllium Husk (Psyllium Husk Powder Sugar Free 5.85 Gm Packet) 1 pkt PO DAILY [facility] Last Admin: 10/01/20 07:50 Dose: 1 pkt Documented by: Ropinirole HCl (Ropinirole 0.5 Mg Tab) 1 mg PO BEDTIME [facility] Last Admin: 10/01/20 19:59 Dose: 1 mg Documented by: Sertraline HCl (Sertraline 25 Mg Tab) 12.5 mg PO DAILY [facility] Last Admin: 10/01/20 07:51 Dose: 12.5 mg Documented by: Spironolactone (Spironolactone 25 Mg Tab) 25 mg PO DAILY [facility] Last Admin: 10/01/20 07:51 Dose: 25 mg Documented by: Discontinued Medications Furosemide (Furosemide 20 Mg/2 Ml Vial) 20 mg IV ONETIME ONE Stop: 09/30/20 09:30 Last Admin: 09/30/20 09:35 Dose: 20 mg Documented by: Furosemide (Furosemide 20 Mg/2 Ml Vial) 20 mg IV BIDDIURETIC [facility] Stop: 10/01/20 16:01 Last Admin: 10/01/20 15:26 Dose: 20 mg Documented by: Lisinopril (Lisinopril 20 Mg Tab) 20 mg PO DAILY [facility] Stop: 09/30/20 08:21 Last Admin: 09/30/20 08:27 Dose: 20 mg Documented by: Nitroglycerin (Nitroglycerin 2% Oint 1 Gm Ud Packet) 0.5 gm TOP ONETIME ONE Stop: 09/30/20 09:29 Last Admin: 09/30/20 09:35 Dose: 0.5 gm Documented by: - Exam Quality Assessment: Supplemental Oxygen General: Alert, Oriented, Cooperative, No Acute Distress HEENT: Mucous Membr. Moist/[place] Neck: Supple, Trachea Midline, No Thyromegaly. No: Lymphadenopathy Lungs: Clear to Auscultation, Normal Respiratory Effort Cardiovascular: Regular Rate, No Murmurs, Irregular Rhythm GI/Abdominal Exam: Normal Bowel Sounds, Soft, Non-Tender, No Organomegaly, No Distention, No Mass Extremities: Pedal Edema (Trace bilaterally) Peripheral Pulses: 2+: Radial (L), Radial (R) Skin: Warm, Dry, Intact Neurological: No New Focal Deficit - Patient Data Lab Results Last 24 hrs: Laboratory Results - last 24 hr 10/02/20 Range/Units 06:44 Sodium 135 L (136-145) mmol/L Potassium 4.1 (3.5-5.1) mmol/L Chloride 98 (98-107) mmol/L Carbon Dioxide 31 (21-32) mmol/L Anion Gap 10.1 (5-15) mmol/L BUN 24 H (7-18) mg/dL Creatinine 0.9 (0.55-1.02) mg/dL Est Cr Clr Drug Dosing 45.12 mL/min Estimated GFR (MDRD) 60 Glucose 90 (70-99) mg/dL Calcium 8.7 (8.5-10.1) mg/dL Result Diagrams: 10/01/20 06:26 10/02/20 06:44 Sepsis Event Note - Evaluation Sepsis Screening Result: No Definite Risk - Focused Exam Vital Signs: Vital Signs Temp Pulse Resp BP Pulse Ox Pulse Ox 10/02/20 06:46 95 10/02/20 06:00 36.6 C 103 H 20 134/93 H 91 L 10/02/20 01:36 89 92 L 10/01/20 22:18 36.4 C 92 16 136/65 97 10/01/20 22:15 97 10/01/20 22:05 97 - Problem List & Annotations (1) CHF (congestive heart failure) SNOMED Code(s): 15829229 Code(s): I50.9 - HEART FAILURE, UNSPECIFIED Status: Acute Current Visit: Yes Qualifiers: Heart failure type: diastolic Heart failure chronicity: acute on chronic Qualified Code(s): I50.33 - Acute on chronic diastolic (congestive) heart failure (2) Respiratory failure SNOMED Code(s): 524764780 Code(s): J96.90 - RESPIRATORY FAILURE, UNSP, UNSP W HYPOXIA OR HYPERCAPNIA Status: Acute Current Visit: Yes Qualifiers: Chronicity: acute Respiratory failure complication: hypoxia Qualified Code(s): J96.01 - Acute respiratory failure with hypoxia (3) HTN (hypertension) SNOMED Code(s): 54341731 Code(s): I10 - ESSENTIAL (PRIMARY) HYPERTENSION Status: Chronic Current Visit: Yes Qualifiers: Hypertension type: essential hypertension Qualified Code(s): I10 - Essential (primary) hypertension (4) Atrial flutter SNOMED Code(s): 2471449 Code(s): I48.92 - UNSPECIFIED ATRIAL FLUTTER Status: Chronic Current Visit: Yes Qualifiers: Atrial flutter type: unspecified Qualified Code(s): I48.92 - Unspecified atrial flutter (5) CKD (chronic kidney disease) stage 3, GFR 30-59 ml/min SNOMED Code(s): 273488307 Code(s): N18.30 - CHRONIC KIDNEY DISEASE, STAGE 3 UNSPECIFIED Status: Chronic Current Visit: Yes Qualifiers: Chronic kidney disease stage 3 subtype: unspecified whether 3a or 3b Q ualified Code(s): N18.30 - Chronic kidney disease, stage 3 unspecified (6) RLS (restless legs syndrome) SNOMED Code(s): 24338605 Code(s): G25.81 - RESTLESS LEGS SYNDROME Status: Chronic Current Visit: No (7) Depression with anxiety SNOMED Code(s): 719926890 Code(s): F41.8 - OTHER SPECIFIED ANXIETY DISORDERS Status: Chronic Current Visit: Yes (8) Pulmonary hypertension SNOMED Code(s): 85972321 Code(s): I27.20 - PULMONARY HYPERTENSION, UNSPECIFIED Status: Chronic Current Visit: Yes (9) Constipation SNOMED Code(s): 15399885 Code(s): K59.00 - CONSTIPATION, UNSPECIFIED Status: Chronic Current Visit: Yes Qualifiers: Constipation type: unspecified constipation type Qualified Code(s): K59.00 - Constipation, unspecified - Problem List Review Problem List Initiated/Reviewed/Updated: Yes - Assessment Assessment:: 80 yo female hospital day #3 admitted for CHF. Doing much better but not quite ready for d/c. - Plan Plan:: #1 Acute on Chronic Diastolic CHF #2 Acute hypoxic respiratory failure - Has done well with IV diuresis. Switched to PO today so we will watch I/O closely. - Net negative >1L yesterday. Continue strict I/O and daily weights. - Will wean oxygen as able. - BMP's have been stable. Will not check tomorrow in anticipation of d/c and stability over multiple days #3 Hypertension - BP's significantly elevated early on in her admission but at goal now. - Home HCTZ is held/d/c'd in light of starting lasix. - Other home medications continued. #4 A.flutter - Recently diagnosed (09/19/20). - Patient is on telemetry. - Continue Eliquis and metoprolol. #5 CKD - Renal function has actually improved with diuresis. - Will need follow-up BMP with hospital discharge follow-up. #6 RLS #7 Depression and anxiety #8 Pulmonary hypertension #9 Constipation - Continue home medications except HCTZ as above. Diet: Heart health/salt restriction DVT: DOAC CODE: DNR Disposition: Good. Patient will remain on acute today as she is a high risk for readmission if she is discharged immediately after switching to oral diuretics. She will also ambulate in the hallways today so we can see how that goes. Last, her son will be here this evening and will be able to assist in transition home. Therefore, plan for d/c home tomorrow.
[2020-10-02] MEDS: Psyllium Husk Powder Sugar Free 5.85 GM Packet PO SCH (09:02)
[2020-10-02] MEDS: Metoprolol Tartrate 50 MG Tab PO SCH ×2 (09:02→20:08)
[2020-10-02] MEDS: Furosemide 40 MG Tab PO SCH (09:03)
[2020-10-02] MEDS: Sodium Chloride/Potassium Chloride Tab PO SCH (09:03)
[2020-10-02] MEDS: Sertraline 25 MG Tab PO SCH (09:04)
[2020-10-02] MEDS: Apixaban 2.5 MG Tab PO SCH ×2 (09:05→20:10)
[2020-10-02] MEDS: amLODIPine 10 MG Tab PO SCH (09:05)
[2020-10-02] MEDS: Lisinopril 20 MG Tab PO SCH ×2 (09:05→20:09)
[2020-10-02] MEDS: Spironolactone 25 MG Tab PO SCH (09:05)
[2020-10-02] MEDS: Acetaminophen 325 MG Tab PO PRN ×2 (15:15→20:32)
[2020-10-02] MEDS: rOPINIRole 0.5 MG Tab PO SCH (20:10)
[2020-10-03] MEDS: Acetaminophen 325 MG Tab PO PRN (03:40)
[2020-10-03] MEDS: Furosemide 40 MG Tab PO SCH (08:32)
[2020-10-03] MEDS: Psyllium Husk Powder Sugar Free 5.85 GM Packet PO SCH (08:32)
[2020-10-03] MEDS: Sodium Chloride/Potassium Chloride Tab PO SCH (08:32)
[2020-10-03] MEDS: Spironolactone 25 MG Tab PO SCH (08:33)
[2020-10-03] MEDS: amLODIPine 10 MG Tab PO SCH (08:33)
[2020-10-03] MEDS: Sertraline 25 MG Tab PO SCH (08:33)
[2020-10-03] MEDS: Lisinopril 20 MG Tab PO SCH (08:34)
[2020-10-03] MEDS: Apixaban 2.5 MG Tab PO SCH (08:34)
[2020-10-03] MEDS: Metoprolol Tartrate 50 MG Tab PO SCH (08:36)
--- NOTE | 2020-10-03 09:07 | PCM.DCSUM1 ---
Discharge Summary - Hospital Course Brief History: Mrs. Rosenberg is an 80 yo female who was admitted with a CHF exacerbation after presenting to the ER for evaluation of shortness of breath. - Discharge Data Discharge Date: 10/03/20 Discharge Disposition: Home, Self-Care 01 Condition: Good - Referral to Home Health Primary Care Physician: Lucy Wagner MD - Discharge Diagnosis/Problem(s) (1) CHF (congestive heart failure) SNOMED Code(s): 27480250 ICD Code: I50.9 - HEART FAILURE, UNSPECIFIED Status: Acute Current Visit: Yes Qualifiers: Heart failure type: diastolic Heart failure chronicity: acute on chronic Qualified Code(s): I50.33 - Acute on chronic diastolic (congestive) heart failure (2) Respiratory failure SNOMED Code(s): 229050345 ICD Code: J96.90 - RESPIRATORY FAILURE, UNSP, UNSP W HYPOXIA OR HYPERCAPNIA Status: Acute Current Visit: Yes Qualifiers: Chronicity: acute Respiratory failure complication: hypoxia Qualified Code(s): J96.01 - Acute respiratory failure with hypoxia (3) HTN (hypertension) SNOMED Code(s): 63074250 ICD Code: I10 - ESSENTIAL (PRIMARY) HYPERTENSION Status: Chronic Current Visit: Yes Qualifiers: Hypertension type: essential hypertension Qualified Code(s): I10 - Essential (primary) hypertension (4) Atrial flutter SNOMED Code(s): 5818982 ICD Code: I48.92 - UNSPECIFIED ATRIAL FLUTTER Status: Chronic Current Visit: Yes Qualifiers: Atrial flutter type: unspecified Qualified Code(s): I48.92 - Unspecified atrial flutter (5) CKD (chronic kidney disease) stage 3, GFR 30-59 ml/min SNOMED Code(s): 858997413 ICD Code: N18.30 - CHRONIC KIDNEY DISEASE, STAGE 3 UNSPECIFIED Status: Chronic Current Visit: Yes Qualifiers: Chronic kidney disease stage 3 subtype: unspecified whether 3a or 3b Qualified Code(s): N18.30 - Chronic kidney disease, stage 3 unspecified (6) RLS (restless legs syndrome) SNOMED Code(s): 67915423 ICD Code: G25.81 - RESTLESS LEGS SYNDROME Status: Chronic Current Visit: No (7) Depression with anxiety SNOMED Code(s): 962001964 ICD Code: F41.8 - OTHER SPECIFIED ANXIETY DISORDERS Status: Chronic Current Visit: Yes (8) Pulmonary hypertension SNOMED Code(s): 33384004 ICD Code: I27.20 - PULMONARY HYPERTENSION, UNSPECIFIED Status: Chronic Current Visit: Yes (9) Constipation SNOMED Code(s): 29502534 ICD Code: K59.00 - CONSTIPATION, UNSPECIFIED Status: Chronic Current V isit: Yes Qualifiers: Constipation type: unspecified constipation type Qualified Code(s): K59.00 - Constipation, unspecified - Patient Summary/Data Operative Procedure(s) Performed: none Complications: none Consults: none Labs Pending at D/C: none Recommended Follow-up Testing/Procedures: BMP Planned Operative Procedure(s) after DC: none Hospital Course: Work-up in the ER was unremarkable aside from the elevated BNP and CXR showing fluid overload. Therefore, the cause of her symptoms was presumed to be CHF. She was given IV diuresis and provided supplemental oxygen to maintain saturations >90%. She had a good response to the IV lasix with improvement in her shortness of breath and leg swelling. She was transitioned to oral lasix yesterday still with a good response. Her renal function and electrolytes remained stable to improved throughout her hospitalization. She has been weaned off oxygen over the past 24 hours. Her heart rates remained at goal on metoprolol. Her hydrochlorothiazide was discontinued but the rest of her home medications were continued. Her hospitalization was otherwise uncomplicated. Her son was able to come from [place] to stay with her for a few days. Therefore, she will be discharged to home. She will follow-up with her PCP next week to determine any adjustments in lasix dosing and to repeat lab. - Patient Instructions Diet: Usual Diet as Tolerated Activity: As Tolerated Showering/Bathing: May Shower - Discharge Plan *PRESCRIPTION DRUG MONITORING PROGRAM REVIEWED*: No *COPY OF PRESCRIPTION DRUG MONITORING REPORT IN PATIENT FRANCIS: No Prescriptions/Med Rec: Furosemide [Lasix] 40 mg PO DAILY #30 tablet Home Medications: Home Meds Metoprolol Tartrate [Lopressor] 150 mg PO DAILY 08/01/14 [History] lisinopriL [Prinivil] 20 mg PO BID 08/01/14 [History] rOPINIRole HCl [Requip] 1 mg PO BEDTIME 08/01/14 [History] Acetaminophen 500 mg PO Q4H PRN 09/30/20 [History] Apixaban [Eliquis] 2.5 mg PO BID 09/30/20 [History] Johann's Leg Cramps Ointment 1 applic TOP BID PRN 09/30/20 [History] Metoprolol Tartrate 100 mg PO BEDTIME 09/30/20 [History] Psyllium Husk (With Sugar) [Metamucil Powder] 1 tsp PO DAILY 09/30/20 [History] Sertraline HCl 12.5 mg PO DAILY 09/30/20 [History] Sodium Chloride/KCl [Thermotabs] 1 tab PO DAILY 09/30/20 [History] Spironolactone [Aldactone] 25 mg PO DAILY 09/30/20 [History] amLODIPine Besylate [Amlodipine Besylate] 10 mg PO DAILY 09/30/20 [History] Furosemide [Lasix] 40 mg PO DAILY #30 tablet 10/03/20 [Rx] Forms: ED Department Discharge Referrals: Lucy Wagner MD [Primary Care Provider] - 10/07/20 2:30 pm (You have a follow up appt. with Dr. Luann Wagner on October 07, 2020 at 2:30---[facility]. Please wear a mask to your appt. ) - Discharge Summary/Plan Comment DC Time >30 min.: No - General Info Date of Service: 10/03/20 Subjective Update: 80 yo female admitted with CHF. She is doing well this morning. Her son is present at the bedside and is prepared to spend the next few days with her as she returns home. - Review of Systems General: Reports: No Symptoms HEENT: Reports: No Symptoms Pulmonary: Reports: Shortness of Breath (with exertion) Cardiovascular: Reports: Dyspnea on Exertion, Edema. Denies: Chest Pain, Lightheadedness Gastrointestinal: Reports: No Symptoms Genitourinary: Reports: No Symptoms Musculoskeletal: Reports: No Symptoms Skin: Reports: No Symptoms Neurological: Reports: No Symptoms - Patient Data Vitals - Most Recent: Last Vital Signs Temp 36.3 C 10/03/20 05:32 Pulse 75 10/03/20 08:36 Resp 20 10/03/20 05:32 BP 149/88 H 10/03/20 08:36 Pulse Ox 97 10/03/20 05:32 Weight - Most Recent: 72.03 kg I&O - Last 24 hours: Intake & Output 10/02/20 10/03/20 10/03/20 22:59 06:59 14:59 Intake Total 180 360 Output Total 1115 650 Balance -935 -650 360 Med Orders - Current: Current Medications Acetaminophen (Acetaminophen 325 Mg Tab) 650 mg PO Q4H PRN PRN Reason: Pain (Mild 1-3)/fever Last Admin: 10/03/20 03:40 Dose: 650 mg Documented by: Amlodipine Besylate (Amlodipine 10 Mg Tab) 10 mg PO DAILY [facility] Last Admin: 10/03/20 08:33 Dose: 10 mg Documented by: Apixaban (Apixaban 2.5 Mg Tab) 2.5 mg PO BID [facility] Last Admin: 10/03/20 08:34 Dose: 2.5 mg Documented by: Furosemide (Furosemide 40 Mg Tab) 40 mg PO DAILY [facility] Last Admin: 10/03/20 08:32 Dose: 40 mg Documented by: Sodium Chloride (Normal Saline) 1,000 mls @ 10 drops/hr IV ASDIRECTED [facility] Last Admin: 09/30/20 09:36 Dose: 10 drops/hr Documented by: Lisinopril (Lisinopril 20 Mg Tab) 20 mg PO BID [facility] Last Admin: 10/03/20 08:34 Dose: 20 mg Documented by: Metoprolol Tartrate (Metoprolol Tartrate 50 Mg Tab) 150 mg PO DAILY [facility] Last Admin: 10/03/20 08:36 Dose: 150 mg Documented by: Metoprolol Tartrate (Metoprolol Tartrate 50 Mg Tab) 100 mg PO BEDTIME [facility] Last Admin: 10/02/20 20:08 Dose: 100 mg Documented by: Leg Cramps Ointment ((Own Supply)) 1 each TOP BID PRN PRN Reason: calf & foot cramps Last Admin: 10/01/20 18:28 Dose: 1 each Documented by: Ondansetron HCl (Ondansetron 4 Mg Tab.Dis) 4 mg PO Q4H PRN PRN Reason: nausea, able to take PO Oral Electrolytes (Sodium Chloride/Potassium Chloride Tab) 1 each PO DAILY [facility] Last Admin: 10/03/20 08:32 Dose: 1 each Documented by: Psyllium Husk (Psyllium Husk Powder Sugar Free 5.85 Gm Packet) 1 pkt PO DAILY [facility] Last Admin: 10/03/20 08:32 Dose: 1 pkt Documented by: Ropinirole HCl (Ropinirole 0.5 Mg Tab) 1 mg PO BEDTIME [facility] Last Admin: 10/02/20 20:10 Dose: 1 mg Documented by: Sertraline HCl (Sertraline 25 Mg Tab) 12.5 mg PO DAILY [facility] Last Admin: 10/03/20 08:33 Dose: 12.5 mg Documented by: Spironolactone (Spironolactone 25 Mg Tab) 25 mg PO DAILY [facility] Last Admin: 10/03/20 08:33 Dose: 25 mg Documented by: Discontinued Medications Furosemide (Furosemide 20 Mg/2 Ml Vial) 20 mg IV ONETIME ONE Stop: 09/30/20 09:30 Last Admin: 09/30/20 09:35 Dose: 20 mg Documented by: Furosemide (Furosemide 20 Mg/2 Ml Vial) 20 mg IV BIDDIURETIC EDGAR Stop: 10/01/20 16:01 Last Admin: 10/01/20 15:26 Dose: 20 mg Documented by: Lisinopril (Lisinopril 20 Mg Tab) 20 mg PO DAILY STA Stop: 09/30/20 08:21 Last Admin: 09/30/20 08:27 Dose: 20 mg Documented by: Nitroglycerin (Nitroglycerin 2% Oint 1 Gm Ud Packet) 0.5 gm TOP ONETIME ONE Stop: 09/30/20 09:29 Last Admin: 09/30/20 09:35 Dose: 0.5 gm Documented by: - Exam General: Reports: Alert, Oriented, Cooperative, No Acute Distress HEENT: Reports: Mucous Membr. Moist/[place] Neck: Reports: Supple, Trachea Midline, No Thyromegaly. Denies: Lymphadenopathy Lungs: Reports: Clear to Auscultation, Normal Respiratory Effort Cardiovascular: Reports: Regular Rate, Irregular Rhythm GI/Abdominal Exam: Normal Bowel Sounds, Soft, Non-Tender, No Organomegaly, No Distention, No Mass Extremities: Normal Inspection, Normal Capillary Refill, Pedal Edema (trace bilaterally) Skin: Reports: Warm, Dry, Intact Neurological: Reports: No New Focal Deficit *Q Meaningful Use (DIS) - VTE *Q VTE Anticoagulation Contraindications: Med/TX Not Indicated/Need
[2020-10-03 11:51] VITALS: BP 140/78; PULSE 80
== END 2020-10-03 11:40 | disposition home or self-care (01) | DRG 291 ==
LOC: VM.ED 07:40 → VM.MS 10:50
PROVIDERS: ADMIT Physician Assistant Medical; ATTEND Family Medicine
DX: I50.9 Heart failure, unspecified (principal); I11.0 Hypertensive heart disease with heart failure; I48.91 Unspecified atrial fibrillation; J30.9 Allergic rhinitis, unspecified; I13.0 Hypertensive heart and chronic kidney disease with heart failure and stage 1 through stage 4 chronic kidney disease, or unspecified chronic kidney disease; K57.90 Diverticulosis of intestine, part unspecified, without perforation or abscess without bleeding; I50.33 Acute on chronic diastolic (congestive) heart failure; J96.01 Acute respiratory failure with hypoxia; I48.92 Unspecified atrial flutter; N18.30 Chronic kidney disease, stage 3 unspecified; Z20.822 Contact with and (suspected) exposure to COVID-19; Z66 Do not resuscitate; G25.81 Restless legs syndrome; F41.8 Other specified anxiety disorders; I27.20 Pulmonary hypertension, unspecified; K59.00 Constipation, unspecified; I08.0 Rheumatic disorders of both mitral and aortic valves; E55.9 Vitamin D deficiency, unspecified; Z96.653 Presence of artificial knee joint, bilateral; Z79.82 Long term (current) use of aspirin; Z88.5 Allergy status to narcotic agent; Z79.899 Other long term (current) drug therapy
CPT/HCPCS: 36415; 71045; 80048; 80053; 83880; 84484; 85025; 85027; 93005; 93010; 94760; 96374; 99284; 99285-25; A9270-GY; J1940; J7030; U0002

== ENCOUNTER 2021-08-25 18:40 | Emergency (ER) | payer MEDICARE, OTHER ==
[2021-08-25] MEDS: Take Home: Nitrofurantoin Monohydrate/Macrocrystalline 100 MG, 2 Cap Pack PO ONE (19:35)
[2021-08-25 21:03] VITALS: BP 118/74; PULSE 61
== END 2021-08-25 19:45 | disposition home or self-care (01) ==
LOC: VM.ED 18:40
DX: N39.0 Urinary tract infection, site not specified (principal); I48.91 Unspecified atrial fibrillation; I10 Essential (primary) hypertension; Z88.5 Allergy status to narcotic agent; Z79.01 Long term (current) use of anticoagulants
CPT/HCPCS: 81001; 87086; 99283; A9270-GY

== ENCOUNTER 2022-08-30 08:42 | Emergency (ER) | payer MEDICARE, OTHER ==
[2022-08-30 09:06] LABS: APPEARANCE,URINE SLIGHTLY CLOUDY (CLEAR); BILIRUBIN,URINE NEGATIVE (NEGATIVE); COLOR,URINE YELLOW (YELLOW); GLUCOSE,URINE NEGATIVE (NEGATIVE); KETONES,URINE NEGATIVE (NEGATIVE); LEUKOCYTE ESTERASE,URINE MODERATE (NEGATIVE); NITRITE,URINE POSITIVE (NEGATIVE); OCCULT BLOOD,URINE TRACE-INTACT (NEGATIVE); PROTEIN,URINE 30 mg/dL (NEGATIVE)
[2022-08-30 09:09] LABS: BACTERIA,URINE MODERATE /HPF (NOT SEEN); MUCUS,URINE FEW /LPF (NOT SEEN); SQUAMOUS EPITHELIAL CELLS,UR MANY /HPF (NOT SEEN); WBC,URINE 40-50 /HPF (NOT SEEN)
[2022-08-30] MEDS: Take Home: Nitrofurantoin Monohydrate/Macrocrystalline 100 MG, 6 Cap Pack PO ONE (09:37)
[2022-08-30 09:41] VITALS: BP 142/71; PULSE 70
== END 2022-08-30 09:40 | disposition home or self-care (01) ==
LOC: VM.ED 08:42
DX: N39.0 Urinary tract infection, site not specified (principal); I48.91 Unspecified atrial fibrillation; I10 Essential (primary) hypertension; Z88.5 Allergy status to narcotic agent; Z79.01 Long term (current) use of anticoagulants; Z79.899 Other long term (current) drug therapy
CPT/HCPCS: 81001; 87086; 87088; 87186; 99284; A9270

== ENCOUNTER 2022-12-06 05:28 | Emergency (ER) | payer MEDICARE, OTHER ==
[2022-12-06 05:53] VITALS: BP 131/90; PULSE 71
[2022-12-06 06:02] LABS: BASOPHILS PERCENT AUTO 0.3 % (0.2-1.2); EOSINOPHILS PERCENT AUTO 0.5 % (0.0-4.0); HEMATOCRIT 40.1 % (33.0-47.0); HEMOGLOBIN 14.2 g/dL (12.0-16.0); IMMATURE GRAN ABSOLUTE AUTO 0.01 x10^3/uL (0.00-0.07); LYMPHOCYTES ABSOLUTE AUTO 0.4 x10^3/uL (1.0-4.8); MEAN CORPUSCULAR HEMOGLOBIN 32.8 pg (26.0-32.0); MEAN CORPUSCULAR HGB CONC 35.4 g/dL (32.0-36.0); MEAN CORPUSCULAR VOLUME 92.6 fL (78.0-93.0); MONOCYTES ABSOLUTE AUTO 0.4 x10^3/uL (0.0-0.8); MONOCYTES PERCENT AUTO 6.3 % (2.0-11.0); NEUTROPHILS ABSOLUTE AUTO 4.9 x10^3/uL (1.8-7.7); NEUTROPHILS PERCENT AUTO 85.7 % (50.0-80.0); RED BLOOD CELL COUNT 4.33 x10^6/uL (4.00-5.50); WHITE BLOOD CELL COUNT,WBC 5.8 x10^3/uL (4.0-10.0)
[2022-12-06 06:11] LABS: PLATELET COUNT,PLT 99 x10^3/uL (130-400)
[2022-12-06 06:12] LABS: ANION GAP 6.1 mmol/L (5-15); CALCIUM 8.9 mg/dL (8.5-10.1); CREATININE 0.8 mg/dL (0.55-1.02); POTASSIUM,K 4.1 mmol/L (3.5-5.1)
[2022-12-06 06:24] LABS: PROTHROMBIN TIME 11.1 SEC (9.5-12.2); PTT,PARTIAL THROMBOPLSTIN TIME 27.9 SEC (23.6-33.6)
== END 2022-12-06 07:19 | disposition home or self-care (01) ==
LOC: VM.ED 05:28
DX: R04.0 Epistaxis (principal); I48.91 Unspecified atrial fibrillation; I11.0 Hypertensive heart disease with heart failure; I50.9 Heart failure, unspecified; Z88.5 Allergy status to narcotic agent; Z79.899 Other long term (current) drug therapy; Z79.01 Long term (current) use of anticoagulants
CPT/HCPCS: 36415; 80048; 85025; 85610; 85730; 99283; 99284

== ENCOUNTER 2022-12-10 09:45 | Emergency (ER) | payer MEDICARE, OTHER ==
[2022-12-10] MEDS ORDERED: Aloe Vera/Sodium Chloride Gel 14.1 GM Tube NAS PRN (09:51)
[2022-12-10 10:07] VITALS: BP 149/104; PULSE 77
== END 2022-12-10 10:55 | disposition home or self-care (01) ==
LOC: VM.ED 09:45
DX: R04.0 Epistaxis (principal); I11.0 Hypertensive heart disease with heart failure; I50.9 Heart failure, unspecified; I48.91 Unspecified atrial fibrillation; Z79.01 Long term (current) use of anticoagulants; Z79.899 Other long term (current) drug therapy; Z88.5 Allergy status to narcotic agent
CPT/HCPCS: 99283; 99284

== ENCOUNTER 2023-04-21 09:30 | Emergency (ER) | payer MEDICARE, OTHER ==
[2023-04-21] MEDS ORDERED: Sodium Chloride 0.9% 10 ML Syringe FLUSH PRN (09:52)
[2023-04-21 09:58] LABS: BASOPHILS PERCENT AUTO 0.1 % (0.2-1.2); HEMATOCRIT 47.1 % (33.0-47.0); HEMOGLOBIN 15.8 g/dL (12.0-16.0); IMMATURE GRAN ABSOLUTE AUTO 0.02 x10^3/uL (0.00-0.07); LYMPHOCYTES ABSOLUTE AUTO 0.1 x10^3/uL (1.0-4.8); LYMPHOCYTES PERCENT AUTO 1.3 % (25.0-50.0); MEAN CORPUSCULAR HGB CONC 33.5 g/dL (32.0-36.0); MEAN CORPUSCULAR VOLUME 92.4 fL (78.0-93.0); MONOCYTES ABSOLUTE AUTO 0.2 x10^3/uL (0.0-0.8); MONOCYTES PERCENT AUTO 1.6 % (2.0-11.0); NEUTROPHILS ABSOLUTE AUTO 10.5 x10^3/uL (1.8-7.7); NEUTROPHILS PERCENT AUTO 96.8 % (50.0-80.0); WHITE BLOOD CELL COUNT,WBC 10.8 x10^3/uL (4.0-10.0)
[2023-04-21] MEDS: Ondansetron 4 MG/2 ML SDV IVPUSH ONE (10:00)
[2023-04-21 10:11] LABS: PLATELET COUNT,PLT 120 x10^3/uL (130-400)
[2023-04-21] MEDS: Sodium Chloride 0.9% 1,000 ML IV ONE (10:15)
[2023-04-21 10:16] LABS: A/G RATIO 0.94; ALANINE AMINOTRANSFERASE,ALT 46 U/L (14-59); ALBUMIN 3.4 g/dL (3.4-5.0); ALKALINE PHOSPHATASE 119 U/L (46-116); ASPARTATE AMNIOTRANSFERASE,AST 36 U/L (15-37); BILIRUBIN TOTAL 2.2 mg/dL (0.2-1.0); BLOOD UREA NITROGEN,BUN 33 mg/dL (7-18); CALCIUM 9.2 mg/dL (8.5-10.1); CARBON DIOXIDE,CO2 23 mmol/L (21-32); CHLORIDE,CL 103 mmol/L (98-107); CREATININE 0.9 mg/dL (0.55-1.02); GLUCOSE RANDOM 150 mg/dL (70-99); POTASSIUM,K 4.4 mmol/L (3.5-5.1); SODIUM,NA 138 mmol/L (136-145)
[2023-04-21 10:19] LABS: ANION GAP 16.4 mmol/L (5-15); ESTIMATED GFR 63 mL/min (>=60)
[2023-04-21 10:47] LABS: CORONAVIRUS COVID-19 NAA NEGATIVE (NEGATIVE); INFLUENZA A NAA NEGATIVE (NEGATIVE); INFLUENZA B NAA NEGATIVE (NEGATIVE); RESPIRATORY SYNCYTIAL VIR NAA NEGATIVE (NEGATIVE)
[2023-04-21 12:12] VITALS: BP 135/81; PULSE 90
== END 2023-04-21 11:07 | disposition home or self-care (01) ==
LOC: VM.ED 09:30
DX: K52.9 Noninfective gastroenteritis and colitis, unspecified (principal); B34.9 Viral infection, unspecified; I11.0 Hypertensive heart disease with heart failure; I50.9 Heart failure, unspecified; Z20.822 Contact with and (suspected) exposure to COVID-19; Z88.5 Allergy status to narcotic agent; Z79.899 Other long term (current) drug therapy; Z79.01 Long term (current) use of anticoagulants
CPT/HCPCS: 0241U; 36415; 80053; 85025; 96361; 96374; 99284-25; J2405; J7030

== ENCOUNTER 2023-05-02 17:38 | Emergency (ER) | payer MEDICARE, OTHER ==
[2023-05-02] MEDS ORDERED: Take Home: Phenazopyridine 95 MG Tab, 4 Tab Pack PO ONE (19:44)
[2023-05-02] MEDS ORDERED: Take Home: Nitrofurantoin Monohydrate/Macrocrystalline 100 MG, 6 Cap Pack PO ONE (20:06)
[2023-05-02 20:28] VITALS: BP 157/95; PULSE 89
[2023-05-03 07:01] LABS: APPEARANCE,URINE CLOUDY (CLEAR); COLOR,URINE YELLOW (YELLOW)
[2023-05-03 07:02] LABS: PROTEIN,URINE >=300 mg/dL (NEGATIVE)
[2023-05-03 07:03] LABS: BILIRUBIN,URINE SMALL (NEGATIVE); GLUCOSE,URINE NEGATIVE (NEGATIVE); KETONES,URINE 15 mg/dL (NEGATIVE); LEUKOCYTE ESTERASE,URINE MODERATE (NEGATIVE); NITRITE,URINE POSITIVE (NEGATIVE); OCCULT BLOOD,URINE LARGE (NEGATIVE)
[2023-05-03 07:32] LABS: BACTERIA,URINE FEW /HPF (NOT SEEN); MUCUS,URINE MODERATE /LPF (NOT SEEN); RBC,URINE 30-40 /HPF (NOT SEEN); SQUAMOUS EPITHELIAL CELLS,UR FEW /HPF (NOT SEEN); WBC,URINE >100 /HPF (NOT SEEN)
== END 2023-05-02 20:12 | disposition home or self-care (01) ==
LOC: VM.ED 17:38
DX: N39.0 Urinary tract infection, site not specified (principal); I11.0 Hypertensive heart disease with heart failure; I50.9 Heart failure, unspecified
CPT/HCPCS: 81001; 87086; 99284; A9270; 81003; 87088; 87186

== ENCOUNTER 2023-10-18 15:49 | Inpatient (IN) | payer MEDICARE, OTHER ==
[2023-10-18 16:24] LABS: BASOPHILS PERCENT AUTO 0.4 % (0.2-1.2); EOSINOPHILS PERCENT AUTO 0.2 % (0.0-4.0); HEMATOCRIT 47.3 % (33.0-47.0); HEMOGLOBIN 15.9 g/dL (12.0-16.0); IMMATURE GRAN ABSOLUTE AUTO 0.01 x10^3/uL (0.00-0.07); LYMPHOCYTES ABSOLUTE AUTO 0.6 x10^3/uL (1.0-4.8); MEAN CORPUSCULAR HEMOGLOBIN 31.5 pg (26.0-32.0); MEAN CORPUSCULAR HGB CONC 33.6 g/dL (32.0-36.0); MEAN CORPUSCULAR VOLUME 93.7 fL (78.0-93.0); MONOCYTES ABSOLUTE AUTO 0.4 x10^3/uL (0.0-0.8); MONOCYTES PERCENT AUTO 7.6 % (2.0-11.0); NEUTROPHILS PERCENT AUTO 80.3 % (50.0-80.0); PLATELET COUNT,PLT 104 x10^3/uL (130-400); RED BLOOD CELL COUNT 5.05 x10^6/uL (4.00-5.50)
[2023-10-18] MEDS: Metoprolol Tartrate 5 MG/5 ML SDV IVPUSH ONE ×2 (16:34→17:36)
[2023-10-18 16:36] LABS: LYMPHOCYTES PERCENT AUTO 11.3 % (25.0-50.0)
[2023-10-18] MEDS: Sodium Chloride 0.9% 10 ML Syringe FLUSH PRN (16:42)
[2023-10-18 16:44] LABS: INR 1.2 (0.9-1.1); PROTHROMBIN TIME 11.7 SEC (8.9-11.5); PTT,PARTIAL THROMBOPLSTIN TIME 30.5 SEC (21.9-33.8)
[2023-10-18 16:55] LABS: A/G RATIO 1.13; ALANINE AMINOTRANSFERASE,ALT 27 U/L (14-59); ALBUMIN 3.5 g/dL (3.4-5.0); ALKALINE PHOSPHATASE 103 U/L (46-116); ANION GAP 12.5 mmol/L (5-15); ASPARTATE AMNIOTRANSFERASE,AST 30 U/L (15-37); BILIRUBIN TOTAL 4.1 mg/dL (0.2-1.0); BLOOD UREA NITROGEN,BUN 20 mg/dL (7-18); CALCIUM 9.4 mg/dL (8.5-10.1); CARBON DIOXIDE,CO2 30 mmol/L (21-32); CHLORIDE,CL 100 mmol/L (98-107); CREATININE 1.1 mg/dL (0.55-1.02); ESTIMATED GFR 49 mL/min (>=60); GLUCOSE RANDOM 125 mg/dL (70-99); MAGNESIUM 1.9 mg/dL (1.8-2.4); POTASSIUM,K 4.5 mmol/L (3.5-5.1); PRO B-TYPE NATRIUR PEPT,BNPPRO 4662 pg/mL (<=450); PROTEIN TOTAL,TP 6.6 g/dL (6.4-8.2); SODIUM,NA 138 mmol/L (136-145); TSH ULTRASENSITIVE 3.619 uIU/mL (0.358-3.74)
[2023-10-18 17:29] LABS: APPEARANCE,URINE SLIGHTLY CLOUDY (CLEAR); BILIRUBIN,URINE SMALL (NEGATIVE); COLOR,URINE YELLOW (YELLOW); GLUCOSE,URINE NEGATIVE (NEGATIVE); KETONES,URINE TRACE mg/dL (NEGATIVE); LEUKOCYTE ESTERASE,URINE TRACE (NEGATIVE); NITRITE,URINE NEGATIVE (NEGATIVE); OCCULT BLOOD,URINE TRACE-LYSED (NEGATIVE); PH,URINE 5.5 (5.0-8.0); PROTEIN,URINE 100 mg/dL (NEGATIVE)
[2023-10-18 17:36] LABS: BACTERIA,URINE FEW /HPF (NOT SEEN); RBC,URINE 0-5 /HPF (NOT SEEN); SQUAMOUS EPITHELIAL CELLS,UR MODERATE /HPF (NOT SEEN); WBC,URINE 0-5 /HPF (NOT SEEN)
[2023-10-18] MEDS: Furosemide 40 MG/4 ML VIAL IV ONE (18:07)
[2023-10-18] MEDS: Metoprolol Tartrate 50 MG Tab PO SCH (18:12)
[2023-10-18] MEDS ORDERED: Ondansetron 4 MG Tab.DIS PO PRN (19:17)
[2023-10-18] MEDS ORDERED: Albuterol/Ipratropium 3.0-0.5 MG/3 ML Neb Soln NEB PRN (19:17)
[2023-10-18] MEDS ORDERED: Acetaminophen 500 MG Tab PO PRN (19:23)
[2023-10-18] MEDS ORDERED: Metoprolol Tartrate 5 MG/5 ML SDV IVPUSH PRN (19:27)
[2023-10-18] MEDS ORDERED: Non-Formulary Medication 1 Each (Metoprolol Tartrate 100 MG Tablet) PO SCH (21:00)
[2023-10-18] MEDS: rOPINIRole 0.5 MG Tab PO SCH (21:14)
[2023-10-18] MEDS: Apixaban 2.5 MG Tab PO SCH (21:14)
[2023-10-19 06:55] LABS: BASOPHILS PERCENT AUTO 0.3 % (0.2-1.2); EOSINOPHILS PERCENT AUTO 0.5 % (0.0-4.0); HEMOGLOBIN 15.9 g/dL (12.0-16.0); IMMATURE GRAN ABSOLUTE AUTO 0.02 x10^3/uL (0.00-0.07); LYMPHOCYTES ABSOLUTE AUTO 0.7 x10^3/uL (1.0-4.8); LYMPHOCYTES PERCENT AUTO 12.1 % (25.0-50.0); MEAN CORPUSCULAR HEMOGLOBIN 31.3 pg (26.0-32.0); MEAN CORPUSCULAR HGB CONC 33.8 g/dL (32.0-36.0); MEAN CORPUSCULAR VOLUME 92.5 fL (78.0-93.0); MONOCYTES ABSOLUTE AUTO 0.5 x10^3/uL (0.0-0.8); MONOCYTES PERCENT AUTO 8.8 % (2.0-11.0); NEUTROPHILS ABSOLUTE AUTO 4.7 x10^3/uL (1.8-7.7); PLATELET COUNT,PLT 96 x10^3/uL (130-400); RED BLOOD CELL COUNT 5.08 x10^6/uL (4.00-5.50)
[2023-10-19 07:17] LABS: A/G RATIO 1.1; ALBUMIN 3.3 g/dL (3.4-5.0); ANION GAP 13.5 mmol/L (5-15); BILIRUBIN TOTAL 3.7 mg/dL (0.2-1.0); CALCIUM 9.3 mg/dL (8.5-10.1); CREATININE 1.1 mg/dL (0.55-1.02); EST CRCL DRUG DOSING (CG) 37.72 mL/min; POTASSIUM,K 4.5 mmol/L (3.5-5.1); PROTEIN TOTAL,TP 6.3 g/dL (6.4-8.2)
[2023-10-19] MEDS: Cephalexin 250 MG Cap PO SCH (09:02)
[2023-10-19] MEDS: Cyanocobalamin (Vitamin B12) 1,000 MCG Tab PO SCH (09:02)
[2023-10-19] MEDS: amLODIPine 5 MG Tab PO SCH (09:02)
[2023-10-19] MEDS: Spironolactone 25 MG Tab PO SCH (09:02)
[2023-10-19] MEDS: Furosemide 20 MG/2 ML VIAL IV SCH (09:03)
[2023-10-19] MEDS: Acetaminophen 325 MG Tab PO PRN (21:23)
[2023-10-20 06:44] LABS: BASOPHILS PERCENT AUTO 0.6 % (0.2-1.2); EOSINOPHILS ABSOLUTE AUTO 0.1 x10^3/uL (0.0-0.5); EOSINOPHILS PERCENT AUTO 1.9 % (0.0-4.0); HEMATOCRIT 45.5 % (33.0-47.0); HEMOGLOBIN 15.4 g/dL (12.0-16.0); IMMATURE GRAN ABSOLUTE AUTO 0.01 x10^3/uL (0.00-0.07); LYMPHOCYTES ABSOLUTE AUTO 0.8 x10^3/uL (1.0-4.8); LYMPHOCYTES PERCENT AUTO 16.6 % (25.0-50.0); MEAN CORPUSCULAR HEMOGLOBIN 30.9 pg (26.0-32.0); MEAN CORPUSCULAR HGB CONC 33.8 g/dL (32.0-36.0); MEAN CORPUSCULAR VOLUME 91.4 fL (78.0-93.0); MONOCYTES ABSOLUTE AUTO 0.4 x10^3/uL (0.0-0.8); MONOCYTES PERCENT AUTO 9.5 % (2.0-11.0); NEUTROPHILS ABSOLUTE AUTO 3.3 x10^3/uL (1.8-7.7); NEUTROPHILS PERCENT AUTO 71.2 % (50.0-80.0); PLATELET COUNT,PLT 90 x10^3/uL (130-400); RED BLOOD CELL COUNT 4.98 x10^6/uL (4.00-5.50); WHITE BLOOD CELL COUNT,WBC 4.7 x10^3/uL (4.0-10.0)
[2023-10-20 07:15] LABS: A/G RATIO 1.14; ALBUMIN 3.2 g/dL (3.4-5.0); BILIRUBIN TOTAL 2.8 mg/dL (0.2-1.0); CALCIUM 9.2 mg/dL (8.5-10.1); EST CRCL DRUG DOSING (CG) 41.49 mL/min; POTASSIUM,K 3.8 mmol/L (3.5-5.1)
[2023-10-20 07:28] LABS: ANION GAP 9.8 mmol/L (5-15)
[2023-10-20] MEDS: Lisinopril 10 MG Tab PO SCH (09:18)
[2023-10-20] MEDS: Furosemide 20 MG Tab PO SCH ×2 (09:18→14:07)
[2023-10-20] MEDS: Furosemide 40 MG/4 ML VIAL IV ONE (11:22)
[2023-10-21 07:49] LABS: BASOPHILS PERCENT AUTO 0.2 % (0.2-1.2); EOSINOPHILS PERCENT AUTO 0.6 % (0.0-4.0); HEMATOCRIT 47.3 % (33.0-47.0); HEMOGLOBIN 15.9 g/dL (12.0-16.0); LYMPHOCYTES ABSOLUTE AUTO 0.7 x10^3/uL (1.0-4.8); LYMPHOCYTES PERCENT AUTO 14.3 % (25.0-50.0); MEAN CORPUSCULAR HEMOGLOBIN 31.5 pg (26.0-32.0); MEAN CORPUSCULAR HGB CONC 33.6 g/dL (32.0-36.0); MEAN CORPUSCULAR VOLUME 93.8 fL (78.0-93.0); MONOCYTES ABSOLUTE AUTO 0.5 x10^3/uL (0.0-0.8); MONOCYTES PERCENT AUTO 8.9 % (2.0-11.0); NEUTROPHILS ABSOLUTE AUTO 3.8 x10^3/uL (1.8-7.7); PLATELET COUNT,PLT 103 x10^3/uL (130-400); RED BLOOD CELL COUNT 5.04 x10^6/uL (4.00-5.50)
[2023-10-21 08:03] LABS: A/G RATIO 1.17; ALBUMIN 3.5 g/dL (3.4-5.0); ANION GAP 9.5 mmol/L (5-15); BILIRUBIN TOTAL 2.2 mg/dL (0.2-1.0); CALCIUM 9.2 mg/dL (8.5-10.1); CREATININE 1.2 mg/dL (0.55-1.02); EST CRCL DRUG DOSING (CG) 34.58 mL/min; POTASSIUM,K 3.5 mmol/L (3.5-5.1); PROTEIN TOTAL,TP 6.5 g/dL (6.4-8.2)
[2023-10-22 06:48] LABS: BASOPHILS PERCENT AUTO 0.5 % (0.2-1.2); EOSINOPHILS PERCENT AUTO 0.9 % (0.0-4.0); HEMATOCRIT 43.9 % (33.0-47.0); HEMOGLOBIN 14.5 g/dL (12.0-16.0); IMMATURE GRAN ABSOLUTE AUTO 0.01 x10^3/uL (0.00-0.07); LYMPHOCYTES ABSOLUTE AUTO 0.8 x10^3/uL (1.0-4.8); MEAN CORPUSCULAR HEMOGLOBIN 31.4 pg (26.0-32.0); MONOCYTES ABSOLUTE AUTO 0.5 x10^3/uL (0.0-0.8); MONOCYTES PERCENT AUTO 10.9 % (2.0-11.0); NEUTROPHILS PERCENT AUTO 68.5 % (50.0-80.0); PLATELET COUNT,PLT 90 x10^3/uL (130-400); RED BLOOD CELL COUNT 4.62 x10^6/uL (4.00-5.50); WHITE BLOOD CELL COUNT,WBC 4.3 x10^3/uL (4.0-10.0)
[2023-10-22 07:10] LABS: A/G RATIO 1.1; ALBUMIN 3.2 g/dL (3.4-5.0); ANION GAP 9.9 mmol/L (5-15); BILIRUBIN TOTAL 1.6 mg/dL (0.2-1.0); CALCIUM 9.2 mg/dL (8.5-10.1); CREATININE 1.2 mg/dL (0.55-1.02); EST CRCL DRUG DOSING (CG) 34.58 mL/min; POTASSIUM,K 3.9 mmol/L (3.5-5.1); PROTEIN TOTAL,TP 6.1 g/dL (6.4-8.2)
[2023-10-22 12:57] VITALS: BP 117/82; PULSE 90
[2023-10-24] MEDS ORDERED: Alendronate 70 MG Tab PO SCH (06:00)
== END 2023-10-22 13:00 | disposition home or self-care (01) | DRG 291 ==
LOC: VM.ED 15:49 → VM.MS 17:37
PROVIDERS: ADMIT Physician Assistant; ATTEND Family Medicine
DX: I11.0 Hypertensive heart disease with heart failure (principal); I13.0 Hypertensive heart and chronic kidney disease with heart failure and stage 1 through stage 4 chronic kidney disease, or unspecified chronic kidney disease; I50.33 Acute on chronic diastolic (congestive) heart failure; Z79.2 Long term (current) use of antibiotics; J96.01 Acute respiratory failure with hypoxia; N39.0 Urinary tract infection, site not specified; N17.9 Acute kidney failure, unspecified; I48.91 Unspecified atrial fibrillation; I27.20 Pulmonary hypertension, unspecified; Z66 Do not resuscitate; I42.1 Obstructive hypertrophic cardiomyopathy; H91.90 Unspecified hearing loss, unspecified ear; K59.09 Other constipation; M19.90 Unspecified osteoarthritis, unspecified site; F41.9 Anxiety disorder, unspecified; F32.A Depression, unspecified; Z96.659 Presence of unspecified artificial knee joint; E66.9 Obesity, unspecified; M81.0 Age-related osteoporosis without current pathological fracture; E53.8 Deficiency of other specified B group vitamins; K57.90 Diverticulosis of intestine, part unspecified, without perforation or abscess without bleeding; N18.30 Chronic kidney disease, stage 3 unspecified; E55.9 Vitamin D deficiency, unspecified; G31.84 Mild cognitive impairment of uncertain or unknown etiology; Z79.01 Long term (current) use of anticoagulants; Z90.49 Acquired absence of other specified parts of digestive tract; Z88.5 Allergy status to narcotic agent; Z79.899 Other long term (current) drug therapy; Z87.19 Personal history of other diseases of the digestive system; Z68.25 Body mass index [BMI] 25.0-25.9, adult
CPT/HCPCS: 36415; 71045; 71046; 80053; 81001; 83735; 83880; 84443; 84484; 85025; 85610; 85730; 87086; 87088; 87186; 93005; 93010; 94760; 95851-GO; 96374; 96376; 97110-GP; 97112-GP; 97116-GP; 97161-GP; 97165-GO; 97530-GO; 97535-GO; 99284; 99285-25; A9270-GY; J1940; J3490

== ENCOUNTER 2023-12-13 21:57 | Emergency (ER) | payer MEDICARE, OTHER ==
[2023-12-13] MEDS: Oxymetazoline 0.05% Nasal Spray 30 ML Bottle NAS ONE (22:14)
[2023-12-13 22:18] VITALS: BP 148/113; PULSE 75
== END 2023-12-13 23:41 | disposition home or self-care (01) ==
LOC: VM.ED 21:57
DX: R04.0 Epistaxis (principal); I48.91 Unspecified atrial fibrillation; I11.0 Hypertensive heart disease with heart failure; I50.9 Heart failure, unspecified; Z88.5 Allergy status to narcotic agent; Z79.01 Long term (current) use of anticoagulants; Z79.899 Other long term (current) drug therapy
CPT/HCPCS: 30901; 99283; 99284-25; A9270-GY

== ENCOUNTER 2023-12-18 22:34 | Emergency (ER) | payer MEDICARE, OTHER ==
[2023-12-18] MEDS ORDERED: Sodium Chloride 0.9% 10 ML Syringe FLUSH PRN (22:45)
[2023-12-18 22:59] LABS: BASOPHILS PERCENT AUTO 0.3 % (0.2-1.2); EOSINOPHILS ABSOLUTE AUTO 0.1 x10^3/uL (0.0-0.5); EOSINOPHILS PERCENT AUTO 1.2 % (0.0-4.0); HEMOGLOBIN 14.7 g/dL (12.0-16.0); IMMATURE GRAN ABSOLUTE AUTO 0.01 x10^3/uL (0.00-0.07); LYMPHOCYTES PERCENT AUTO 17.7 % (25.0-50.0); MEAN CORPUSCULAR HEMOGLOBIN 30.6 pg (26.0-32.0); MEAN CORPUSCULAR HGB CONC 33.4 g/dL (32.0-36.0); MEAN CORPUSCULAR VOLUME 91.7 fL (78.0-93.0); MONOCYTES ABSOLUTE AUTO 0.5 x10^3/uL (0.0-0.8); MONOCYTES PERCENT AUTO 7.9 % (2.0-11.0); NEUTROPHILS ABSOLUTE AUTO 4.2 x10^3/uL (1.8-7.7); NEUTROPHILS PERCENT AUTO 72.7 % (50.0-80.0); PLATELET COUNT,PLT 132 x10^3/uL (130-400); WHITE BLOOD CELL COUNT,WBC 5.8 x10^3/uL (4.0-10.0)
[2023-12-18 23:15] LABS: A/G RATIO 1.09; ALANINE AMINOTRANSFERASE,ALT 24 U/L (14-59); ALBUMIN 3.6 g/dL (3.4-5.0); ALKALINE PHOSPHATASE 141 U/L (46-116); ASPARTATE AMNIOTRANSFERASE,AST 29 U/L (15-37); BILIRUBIN TOTAL 1.9 mg/dL (0.2-1.0); BLOOD UREA NITROGEN,BUN 28 mg/dL (7-18); CALCIUM 8.9 mg/dL (8.5-10.1); CARBON DIOXIDE,CO2 32 mmol/L (21-32); CHLORIDE,CL 98 mmol/L (98-107); GLUCOSE RANDOM 112 mg/dL (70-99); LIPASE 58 U/L (19-71); POTASSIUM,K 4.3 mmol/L (3.5-5.1); PROTEIN TOTAL,TP 6.9 g/dL (6.4-8.2); SODIUM,NA 136 mmol/L (136-145)
[2023-12-18 23:16] LABS: ANION GAP 10.3 mmol/L (5-15); ESTIMATED GFR 55 mL/min (>=60)
[2023-12-18 23:21] LABS: BILIRUBIN,URINE SMALL (NEGATIVE); COLOR,URINE AMBER (YELLOW); GLUCOSE,URINE NEGATIVE (NEGATIVE); KETONES,URINE NEGATIVE (NEGATIVE); LEUKOCYTE ESTERASE,URINE TRACE (NEGATIVE); NITRITE,URINE NEGATIVE (NEGATIVE); OCCULT BLOOD,URINE NEGATIVE (NEGATIVE); PH,URINE 5.5 (5.0-8.0); PROTEIN,URINE NEGATIVE (NEGATIVE)
[2023-12-18 23:28] LABS: APPEARANCE,URINE SLIGHTLY CLOUDY (CLEAR)
[2023-12-18 23:30] LABS: BACTERIA,URINE OCCASIONAL /HPF (NOT SEEN); MUCUS,URINE OCCASIONAL /LPF (NOT SEEN); RBC,URINE 0-5 /HPF (NOT SEEN); SQUAMOUS EPITHELIAL CELLS,UR MODERATE /HPF (NOT SEEN); WBC,URINE 0-5 /HPF (NOT SEEN)
[2023-12-19] MEDS: Acetaminophen 500 MG Tab PO ONE (00:20)
== END 2023-12-19 00:21 | disposition home or self-care (01) ==
LOC: VM.ED 22:34
DX: R10.31 Right lower quadrant pain (principal); I48.91 Unspecified atrial fibrillation; I13.0 Hypertensive heart and chronic kidney disease with heart failure and stage 1 through stage 4 chronic kidney disease, or unspecified chronic kidney disease; N18.9 Chronic kidney disease, unspecified; I50.9 Heart failure, unspecified; E66.9 Obesity, unspecified; Z79.899 Other long term (current) drug therapy; Z88.5 Allergy status to narcotic agent
CPT/HCPCS: 36415; 74176; 80053; 81001; 83690; 85025; 99284; A9270